=== PATIENT | male | born 1935 | race Caucasian/White ===

== ENCOUNTER 2022-02-09 08:52 | Inpatient (IN) | payer OTHER ==
--- NOTE | 2022-02-09 15:54 | R.PREADM ---
PRE-ADMISSION SCREENING FORM SCREENING DATE AND TIME 02/09/2022 10:21 (CDT) ANTICIPATED REHAB ADMISSION DATE 02/11/2022 REFERRING FACILITY [facility] REFERRAL DATE AND TIME 02/08/2022 10:26 (CDT) REFERRAL ROOM# 216 ACUTE ADMIT DATE 02/04/2022 Previous Rehabilitation(s): No. 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 THOMAS REFERRING PHYSICIAN REHAB FACILITY [facility] CLINICAL LIAISON Veena Nelson PHYSICIAN REVIEWER Dr. Dalton Helms M.D. MR# [id number] NAME ALICIA CABRERA AD[address]ESS [address] ( [place]IP [phone] DATE OF 1935 AGE 86 SSN# [id number] GENDER male MARITAL STATUS Unknown PREF. LANGUAGE (IF NON-ROMANIAN) Slovak ADMIT FROM 02 - [facility] PRE-HOSPITAL LIVING SETTING 01 - Home (private home/apt. board/care, assisted living, long term, transitional living) HOME TYPE AND DETAILS Type of home: single family house # of steps to enter the residence: 0 # of levels in the residence: 1 # of steps within the residence: 0 PRE-HOSPITAL LIVING WITH Alone FAMILY SUPPORT No PRIMARY FAMILY CONTACT NAME ROSS LUGO PRIMARY FAMILY CONTACT PHONE PRIMARY FAMILY CONTACT RELATIONSHIP FAMILY PHONE PRIMARY FAMILY CONTACT ON ADM.? no IS PRIMARY FAMILY CONTACT AUTH. REP.? no 1ST EMERGENCY CONTACT ROSS LUGO 1ST CONTACT PHONE 1ST CONTACT RELATIONSHIP FAMILY PHONE 1ST CONTACT ON ADM. no IS 1ST CONTACT AUTH. REP.? no PHONE 2ND CONTACT ON ADM.? no PATIENT EMPLOYMENT STATUS Retired (for age) PATIENT EMPLOYER No Employer PAYOR INFORMATION: 1ST PAYOR NAME MEDICARE 1ST PAYOR PHONE 1ST PAYOR INJURY/ILLNESS DUE TO ACCIDENT? No ANOTHER LIBERTARIAN RESPONSIBLE? No PRIMARY REHAB/ACUTE DIAGNOSIS: CHF ONSET DATE 02/04/2022 REHAB IMPAIRMENT CATEGORY (GARRET): 14 Cardiac does NOT meet 60% rule PRIMARY DIAGNOSIS-RELATED SURGERIES: N/A INTERVENTIONS: - CHF monitoring of patient symptoms and medication management by physician Regular assessment of patient vitals. Daily weights will be obtained - Diabetes Monitor blood glucose levels and administer medication as indicated by Physician Diet will be customized to manage diabetic needs. - Depression Patient will continue with administered medications per MD Provide regular exercise, which is a proponent to fight depression - A-Fib Vitals will be monitored regularly and medications administered as indicated by Physician - Weakness Daily therapy services to enhance patient's functional strength and abilities. RISK FOR COMPLICATIONS: - CARDIC monitoring heart rate/signs and symptoms for cardiac distress - Weakness Regular therapeutic activity and exercise Strengthening exercises to be performed - Diabetic Complications Regular monitoring and management of blood glucose levels. pt will receive a specialized diet to help manage blood glucose levels - Skin Breakdown Nursing will assess skin daily using assessment tool and will place on Skin Breakdown Precautions as Indicated per protocol - UTI Monitor for frequency, burning, discomfort, or incontinence Physician medical management as warranted - Falls Educated pt on fall prevention strategies to reduce/eliminate fall risk Patient will be evaluated for Fall Precautions and will be placed on Fall Precautions as indicated pe r protocol. - DVT PTT and INR will be monitored to effectively mitigate risk for development of DVT or PE while here. Medications will be administered as per MD Mobility training and regular exercise - CVA pt has A-Fib and requires medical monitoring and medication management to reduce risk for CVA SUMMARY OF ACUTE HOSPITALIZATION: Pt. is a 86 yo Right-handed male. On 02/04/2022 he was admitted to [facility] with diagnosis CHF. His impairment category is Cardiac 09 - Cardiac Disorders (09). Pre-morbidly, Pt. was independent/mod-I in Locomotion, Safety Awareness, Social Cognition, and Balanc e; and he had good Transfers Control, Sphincter Control, Self-Care, Communication, and Endurance. Currently, he has deficits of Locomotion, Safety Awareness, Social Cognition, Transfers Control, Roby nce, Sphincter Control, Self-Care, Endurance, and Communication. Pt. is now referred to [facility] for acute in-patient rehabilitation in order to maximize patient's functional independence in activities of daily living, strength, ROM, and mobi lity. Patient has realistic goal of being discharged at assistance level 7-Ind to reside at Home with Pt s elf. 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 Treatment - . REVIEW OF SYSTEMS: - Gen Alert and awake Lying in bed No apparent distress Oriented to: person, time, and place - Vital Signs Temperature: 97.5 F SBP/DBP: 112/53 Pulse: 89 Resp: 18 Vital signs stable, afebrile - CVS RRR VITAL SIGNS Temperature: 97.5 F SBP/DBP: 112/53 Pulse: 89 Resp: 18 Vital signs stable, afebrile MEDICATIONS/TREATMENT: Other- See attached MAR (Medication Administration Record). CURRENT SPHINCTER CONTROL: Pre-hospital bladder status: unspecified # of bladder accidents in the last 7 days prior to screenin Pre-hospital bowel status: unspecified # of bowel accidents in the last 7 days prior to screenin Last Bowel Movement Date: 02/09/2022 CURRENT LOCOMOTION STATUS: distance walked 20 feet with rolling walker DETAILED CURRENT FUNCTIONAL STATUS: - Bladder accident frequency: 7-Ind - No accidents in the past 7 days - Bowel accident frequency: 7-Ind - No accidents in the past 7 days - Walking score based on distance walked: 0(N/A) score based on distance walked: 1(<=50ft) - Wheelchair score based on distance traveled: 0(N/A) QI SCORES: - Self-Care A. Eating 03-Partial/moderate assistance B. Oral hygiene 03-Partial/moderate assistance C. Toileting hygiene 03-Partial/moderate assistance E. Shower/bathe self 03-Partial/moderate assistance F. Upper body dressing 03-Partial/moderate assistance G. Lower body dressing 03-Partial/moderate assistance H. Putting on/taking off footwear 88-Not attempted due to medical condition or safety concerns - Mobility A. Roll left and right 04-Supervision or touching assistance B. Sit to lying 03-Partial/moderate assistance C. Lying to sitting on side of bed 03-Partial/moderate assistance D. Sit to stand 03-Partial/moderate assistance E. Chair/[id number] transfer 03-Partial/moderate assistance F. Toilet transfer 03-Partial/moderate assistance G. Car transfer 88-Not attempted due to medical condition or safety concerns I. Walk 10 feet 03-Partial/moderate assistance J. Walk 50 feet with two turns 88-Not attempted due to medical condition or safety concerns K. Walk 150 feet 88-Not attempted due to medical condition or safety concerns L. Walking 10 feet on uneven surfaces 88-Not attempted due to medical condition or safety concerns M. 1 step (curb) 88-Not attempted due to medical condition or safety concerns N. 4 steps 88-Not attempted due to medical condition or safety concerns O. 12 steps 88-Not attempted due to medical condition or safety concerns P. Picking up object 88-Not attempted due to medical condition or safety concerns R. Wheel 50 feet with two turns S. Wheel 150 feet - Bladder and Bowel Bladder continence Bowel continence - Endurance Fair - Balance Fair - Safety Awareness Fair CURRENT FUNC. DEFICITS: Self-Care, Mobility, Endurance, Balance, and Safety Awareness CURRENT / PREVIOUS ASSISTIVE DEVICES: Rolling Walker HISTORY OF FALLS. HAS THE PATIENT HAD TWO OR MORE FALLS IN THE PAST YEAR OR ANY FALL WITH INJURY IN T HE PAST YEAR?: Yes PRIOR SURGERY. DID THE PATIENT HAVE MAJOR SURGERY DURING THE 100 DAYS PRIOR TO ADMISSION?: No THERAPY NOTES FROM ACUTE CARE: Attached. SPECIAL NEEDS: - Safety Concerns Skin breakdown precautions needed due to skin breakdown risk - GENERAL WEAKNESS PRECAUTIONS: - Fall Precaution SAFTY AND FALL PATIENT NEEDS ACTIVE AND ONGOING THERAPEUTIC INTERVENTION OF MULTIPLE THERAPY DISCIPLINES, INCLUDING: - Dietary and Nutrition Adequate Nutrition. Nutritional Education. Nutritional Supplements. Evaluate and Treat. - Occupational Therapy Cognitive Retraining. Patient needs Occupational Therapy for a daily minimum of 1.5 hours at least 5 out of 7 days, to improve Activities of Daily Living, including: Eating, Grooming, Bathing, Dressing, Toileting, Toilet Transfers, Community Reintegration, Higher functional activities, Adaptive Equipme nt, Splinting, Household Tasks, and Other activities as determined. Visual Perceptual Training. Evalu ate and Treat. Patient/Family Education. Safety Awareness. Transfer Training. ADL Training. Household Tasks. UE Strengthening. Adaptive Equipment. - Speech Therapy Cognitive Training. Expressive Language Skills. Memory Strategies. Patient needs Speech Therapy for a daily minimum of 1.5 hours at least 5 out of 7 days, to improve: Swallowing, Cognition, Language Ski lls, and Compensatory Strategies. Receptive Language Skills. Speech Intelligibility Training. Evaluat e and Treat. - Physical Therapy Patient needs Physical Therapy for a daily minimum of 1.5 hours at least 5 out of 7 days, to improve: Mobility, Strengthening, Transfers, Stretching, ROM, Endurance, Ability to manage stairs, Gait, and Balance. Mobility Training. Gait Training. Safety Awareness. Balance Training. Transfer Training. luate and Treat. Patient/Family Education. LE Strengthening. PATIENT NEEDS CLOSE MEDICAL SUPERVISION BY A REHABILITATION PHYSICIAN FOR: Coordination of Treatment Team Wound Care Medical and Co-Morbidity Management DVT Management Pain Management PATIENT REQUIRES 24X7 REHAB NURSING FOR MEDICAL AND FUNCTIONAL MGT. OF THE FOLLOWING DEFICITS: Disease Management Medication Management Patient requires 24x7 Rehabilitation Nursing for: Pain Issues, Identifying and preventing risk factor s, Monitoring and reporting current medical conditions, Assisting with ambulation and transfer, Isidro ting with all ADL-s, Teaching patients about disease process and medications, Family teaching, Provid ing safe environment, Bowel and Bladder Issues, Skin Integrity, and Medication Management Patient/Family Education Providing Safe Environment Skin Integrity Bowel and Bladder Management Pain Management PATIENT REQUIRES INTENSIVE, COORDINATED INTERDISCIPLINARY APPROACH TO REHAB: Arranging Home Equipment/Services Discharge Planning Family Intervention/Training Patient needs Dietary and Nutrition Services for: Adequate Nutrition, Nutritional Supplements, and Nu tritional Education Patient needs On Air Host and/or Case Management for: Discharge Planning, Arranging Home Equipmen t or Services, and Family Interventions On Air Host/Case Management PATIENT REHAB POTENTIAL: Caroline CABRERA is able and expected to receive 3 hours of individualized therapy daily on at least 5 of e very 7 days Caroline CABRERA's prognosis for significant practical improvement within a reasonable period of time appea rs Good Expected level of measurable improvement will be of a practical value to Caroline CABRERA's functional capa city or adaptations to impairments Has a viable Discharge Plan Medically appropriate; condition is sufficiently stable to participate in intensive rehab program DISCHARGE PLAN: - Estimated Length of Stay (days) 10. - Consensus on plan Discharge plan has been discussed with primary caregiver. Patient/Family is in agreement with the harish n. Primary caregiver is in agreement with the plan. - Patient/Family Goals Return home independently. - Planned Living Setting Upon Discharge Home, to live alone. Transitional Living. Primary caregiver: Pt self. RECOMMENDED CARE LEVEL: IRF RECOMMENDATION DETAILS: Recommended Admission to Comprehensive Rehabilitation Program to Increase Functional [place] SCREENER'S COMPLETENESS CONFIRMATION: - Screening Confirmation The patient data collection on this preadmission screening form is finished PHYSICIANS REVIEW AND ADMISSION DETERMINATION Admit - Based on my review of the Pre-Admission Screening results, in my medical judgment and experie nce, I concur with the findings and recommend admission to [facility], as this patient requires an IRF level of care. SIGNATURE PANEL: Production Assembly Operator - [electronically] signed by Veena Nelson on 02/09/2022 at 15:11 (CDT) Production Assembly Operator - [electronically] signed by Yovany Alvarez PT on 02/09/2022 at 15:28 (CDT) Physician Reviewer - [electronically] signed by Dr. Dalton Helms M.D. on 02/09/2022 at 15:53 (CDT )
--- OUTSIDE RECORDS SUMMARY | 2022-02-09 19:57 | XMS REPORT | Continuity of Care Document ---
:1935 Author Organization [facility] t Address [address] [place] [address] Support Name Relationship Address Phone ROSS LUGO [phone] [place] [address] DO David FINCH Primary Care Physician [address] [phone] [place] [address] MD WILLIAM ELYSE Admitting Provider [address] [place] [address] MD YOGI R Emergency Provider [address] [place] [address] TRIPLET Unavailable [address] [place] [address] TAQUERIA BRASWELL Attending Provider [address] [place] [address] TRIPLET Unavailable [address] [place] [address] MD CARLY L Emergency Provider [address] [place] [address] MD MELCHOR A Emergency Provider [address] [place] [address] MD JENNIFER A Emergency Provider [facility] [place] [address] MD KOFFI Emergency Provider [address] [phone] [place] [address] JUAN F ABDI MD E Admitting Provider [address] [phone] [place] [address] LUGO Family [place] [address] MD REFUGIO Emergency Provider Unavailable Unavailable DO ELENA FINCH Primary Care Physician [address] [place] [address] MD DIANE Emergency Provider [address] [place] [address] Care Team Providers Name Role Phone BURTON Primary Care Physician Unavailable JOANN BERNARDO Attending Clinician Unavailable NERNAZANIN Attending Clinician Unavailable BURTON Attending Clinician Unavailable JOANN BERNARDO Admitting Clinician Unavailable NERET Admitting Clinician Unavailable BURTON Admitting Clinician Unavailable Payers Payer Name Policy Type Policy Number Effective Date Expiration Date S orestes MEDICARE A B [id number] 2000 00:00:00 MEDICAID [employer] [id number] 2021 00:00:00 [place] [id number] 2000 [employer] 00:00:00 [place] ACS - [id number] TMHP - TRADITIONAL Problems This patient has no known problems. Allergies, Adverse Reactions, Alerts Allergy Allergy Status Severity Reaction(s) Onset Inactive Treating Comm ents Source Name Type Date Date Clinician IBUPROFE Allergy Active 2020-[address] [facility] Medications This patient has no known medications. Vital Signs Vital Name Observation Time Observation Value Comments Source HEIGHT 2021-10-07 19:28:00 172.7 cm WEIGHT 2021-10-07 19:28:00 100.6 kg HEIGHT 2021-10-07 19:28:00 172.7 cm WEIGHT 2021-10-07 19:28:00 100.6 kg Procedures This patient has no known procedures. Encounters Start End Encounter Admission Attending Care Care Encounter Source Date/Time Date/Time Type Type Clinicians Facility Department ID 2021-10-07 2021-10-17 Inpatient ER THOR BERNARDO Podiatry [id number] [facility] 18:29:00 16:19:00 CARLOS 2020-05-31 2020-05-31 [facility] [id number] [place] 12:38:00 12:38:00 0714 [facility] 2020-05-25 2020-05-25 [id number] [place] 03:27:00 03:27:00 0708 [facility] Group 2017-04-20 2017-04-20 Outpatient [facility] [id number] [place] 11:02:00 11:02:00 0427 [facility] Results Test Description Test Time Test Comments Results Result Comments Source POCT-GLUCOSE METER 2021-10-17 12:05:32 Test Item Value Reference Range Interpretation Comme nts POC-GLUCOSE METER (BEAKER) 132 mg/dL 70-110 H : TESTED AT [facility] [address]test code = [address], [place] [facility] [address]: [employer] Business Analyst/Techni get ID = [id number] for Gupta Yuliya POCT-GLUCOSE [id number] 07:48:35 Test Item Value Reference Range Interpretation Comments POC-GLUCOSE METER 102 mg/dL 70-110 : TESTED A T [facility] [address] (BEAKER) (test code [address], = 1538) [facility] [address]: [employer] Business Analyst/Techni get ID = [id number] for Lars Yuliya krueger CBC W/PLT COUNT & AUTO [id number] 06:10:33 Test Item Value Reference Range Interpretation Comments WHITE BLOOD CELL COUNT (BEAKER) 7.4 K/ L 4.0-10.0 (test code = 775) RED BLOOD CELL COUNT (BEAKER) 3.41 M/ L 4.20-5.80 L (test code = 761) HEMOGLOBIN (BEAKER) (test code = 10.0 GM/DL 13.0-16.8 L 410) HEMATOCRIT (BEAKER) (test code = 32.0 % 36.0-50.0 L 411) MEAN CORPUSCULAR VOLUME (BEAKER) 93.8 fL 82.0-99.0 (test code = 753) MEAN CORPUSCULAR HEMOGLOBIN 29.3 pg 27.0-33.0 (BEAKER) (test code = 751) MEAN CORPUSCULAR HEMOGLOBIN CONC 31.3 GM/DL 32.0-36.0 L (BEAKER) (test code = 752) RED CELL DISTRIBUTION WIDTH 13.5 % 12.0-15.0 (BEAKER) (test code = 412) PLATELET COUNT (BEAKER) (test 298 K/CU MM 150-430 code = 756) MEAN PLATELET VOLUME (BEAKER) 10.4 fL 6.0-11.5 (test code = 754) NUCLEATED RED BLOOD CELLS 0 /100 WBC 0-0 (BEAKER) (test code = 413) (MANUAL DIFFERENTIAL)2021-10-17 06:10:33 Test Item Value Reference Range Interpretation Comments NEUTROPHILS - REL (DIFF) (BEAKER) 59 % (test code = 1359) LYMPHOCYTES - REL (DIFF) (BEAKER) 22 % (test code = 1360) MONOCYTES - REL (DIFF) (BEAKER) 4 % (test code = 1361) EOSINOPHILS - REL (DIFF) (BEAKER) 10 % (test code = 1362) BASOPHILS - REL (DIFF) (BEAKER) 2 % (test code = 1363) BANDS - REL (DIFF) (BEAKER) (test 2 % 0-10 code = 1348) ATYPICAL LYMPHOCYTE - REL (DIFF) 1 % 0-0 H (BEAKER) (test code = 260) NEUTROPHILS - ABS (DIFF) (BEAKER) 4.37 K/ L 1.80-8.00 (test code = 1365) LYMPHOCYTES - ABS (DIFF) (BEAKER) 1.63 K/ L 1.48-4.50 (test code = 1366) MONOCYTES - ABS (DIFF) (BEAKER) 0.30 K/ L 0.00-1.30 (test code = 1367) EOSINOPHILS - ABS (DIFF) (BEAKER) 0.74 K/ L 0.00-0.50 H (test code = 1368) BASOPHILS - ABS (DIFF) (BEAKER) 0.15 K/ L 0.00-0.20 (test code = 1369) BANDS-ABS (DIFF) (BEAKER) (test 0.1 K/ L 0.0-0.8 code = 1349) ATYPICAL LYMPHOCYTES - ABS (DIFF) 0.07 K/ L 0.00-0.00 H (BEAKER) (test code = 263) TOTAL COUNTED (BEAKER) (test code = 100 1351) BANDS + SEGMENTED NEUTROPHILS 4.51 (BEAKER) (test code = 1352) WBC MORPHOLOGY (BEAKER) (test code Normal = 487) RBC MORPHOLOGY (BEAKER) (test code Normal = 762) LARGE PLT(BEAKER) (test code = Present 2156) BASIC METABOLIC [id number] 06:01:27 Test Item Value Reference Range Interpretation Comments SODIUM (BEAKER) 139 meq/L 135-148 (test code = 381) POTASSIUM (BEAKER) 4.4 meq/L 3.6-5.5 Specimen slightly (test code = 379) hemolyzed CHLORIDE (BEAKER) 108 meq/L 98-106 H (test code = 382) CO2 (BEAKER) (test 20 meq/L 20-29 code = 355) BLOOD UREA NITROGEN 29 mg/dL 10-26 H (BEAKER) (test code = 354) CREATININE (BEAKER) 1.71 mg/dL 0.50-1.20 H Specimen slightly (test code = 358) hemolyzed GLUCOSE RANDOM 107 mg/dL 70-110 (BEAKER) (test code = 652) CALCIUM (BEAKER) 8.2 mg/dL 8.5-10.5 L (test code = 697) EGFR (BEAKER) (test 38 mL/min/1.73 ESTIMA THOMAS GFR IS code = 1092) sq m NOT ACCURATE CREATININE CLEARANCE IN PREDICTING GLOMERULAR FILTRATION RATE . ESTIMATED GFR I S NOT APPLICABLE FOR DIALYSIS PATIEN TS. [employer] Business Analyst ID - [id number] ID - [id number] ID - [id number] ID - [id number] ID - JGOR25Ncbjsmnc ID - [id number] ID - LIQY02Zorwtltm ID - [id number] ID - [id number] ID - [id number] ID - BOZH23Oupznusu ID - TUUL27NIS, CHEST, 1 VIEW, NON [id number] 21:30:00Reason for exam:->for picc line confirmationShould this be performed at the bedside?->Yes [facility] 1935 Sex: MFINAL REPORT Exam: RAD, CHEST, 1 VIEW, NON DEPTDate: 10/16/2021 9:29 PM Indication: Line placement Comparison: Chest radiograph of 10/11/2021 FINDINGS: Lines/Tubes:Left chestAICD unchanged. Right PICC line terminates in the SVC. Lungs:Stable lung volumes and central pulmonary vascular congestion. No new focal consolidation. Pleura:No pleural effusion. No pneumothorax. Heart /Mediastinum:Cardiomediastinal silhouette is stably enlarged. Bones/Soft Tissues: No acute osseous injury. Abdomen: No free air below the diaphragm. IMPRESSION:Right PICC line terminates in the SVC. Stable cardiomegaly and central pulmonary vascular congestion. Signed: Reza Wilson MDReport Verified Da te/Time: 10/16/2021 21:30:07 Reading Location: [address] Transitional Reading Room ANAEROBIC [id number] 14:06:04 Test Item Value Reference Range Interpretation Comments CULTURE (BEAKER) A 1+ Peptostr eptococcus species (test code = 1095) POCT-GLUCOSE [id number] 08:49:44 Test Item Value Reference Range Interpretation Comments POC-GLUCOSE METER 82 mg/dL 70-110 : TESTED A T [facility] [address] (BEAKER) (test code = [address]) [place] [address]: [employer] Business Analyst/Techni get ID = [id number] for Lars h, Yuliya POCT-GLUCOSE [id number] 21:41:46 Test Item Value Reference Range Interpretation Comments POC-GLUCOSE METER 87 mg/dL 70-110 : TESTED A T [facility] [address] (BEAKER) (test code = [address], [address]) [place] [address]: [employer] Business Analyst/Techni get ID = [id number] for Edwa Corey gibsonothy POCT-GLUCOSE [id number] 15:43:58 Test Item Value Reference Range Interpretation Comments POC-GLUCOSE METER 202 mg/dL 70-110 H : TESTED A T [facility] [address] (BEAKER) (test code [address], = 1538) [place] [address]: [employer] Business Analyst/Techni get ID = [id number] for Veronica Moise POCT-GLUCOSE [id number] 11:37:55 Test Item Value Reference Range Interpretation Comments POC-GLUCOSE METER 132 mg/dL 70-110 H : TESTED A T [facility] [address] (BEAKER) (test code [address], = 1538) [facility] [address]: [employer] Business Analyst/Techni get ID = [id number] for Veronica Moise POCT-GLUCOSE [id number] 11:19:10 Test Item Value Reference Range Interpretation Comments POC-GLUCOSE METER 161 mg/dL 70-110 H : TESTED A T [facility] [address] (BEAKER) (test code [address], = [address]) [place] [address]: [employer] Business Analyst/Techni get ID = [id number] for Keron Monte [id number] 07:28:33 Test Item Value Reference Range Interpretation Comments MAGNESIUM (BEAKER) (test code = 1.9 mg/dL 1.5-3.0 627) [employer] Business Analyst ID - LITOBASIC METABOLIC [id number] 05:42:47 Test Item Value Reference Range Interpretation Comments SODIUM (BEAKER) 142 meq/L 135-148 (test code = 381) POTASSIUM (BEAKER) 3.9 meq/L 3.6-5.5 (test code = 379) CHLORIDE (BEAKER) 109 meq/L 98-106 H (test code = 382) CO2 (BEAKER) (test 23 meq/L 20-29 code = 355) BLOOD UREA NITROGEN 19 mg/dL 10-26 (BEAKER) (test code = 354) CREATININE (BEAKER) 1.52 mg/dL 0.50-1.20 H (test code = 358) GLUCOSE RANDOM 91 mg/dL 70-110 (BEAKER) (test code = 652) CALCIUM (BEAKER) 8.5 mg/dL 8.5-10.5 (test code = 697) EGFR (BEAKER) (test 44 mL/min/1.73 ESTIMA THOMAS GFR IS code = 1092) sq m NOT ACCURATE CREATININE CLEARANCE IN PREDICTING GLOMERULAR FILTRATION RATE . ESTIMATED GFR I S NOT APPLICABLE FOR DIALYSIS PATIEN TS. [employer] Business Analyst ID - LITOOperator ID - LITOOperator ID - LITOOperator ID - LITOOperator ID - LITOOperator ID - LITOOperator ID - LITOOperator ID - LITOOperator ID - LITOOperator ID - LITOOperator ID - LITOOperator ID - LITOPOCT-GLUCOSE METER 2021-10-13 19:52:36 Test Item Value Reference Range Interpretation Comments POC-GLUCOSE METER 187 mg/dL 70-110 H : TESTED A T [facility] [address] (BEAKER) (test code [address], = 1538) [facility] [address]: [employer] Business Analyst/Techni get ID = [id number] for Danielle Brewer ANAEROBIC [id number] 08:16:34 Test Item Value Reference Range Interpretation Comments CULTURE (BEAKER) (test No anaerobes isolated code = 1095) CBC W/PLT COUNT & AUTO [id number] 05:44:15 Test Item Value Reference Range Interpretation Comments WHITE BLOOD CELL COUNT (BEAKER) 8.7 K/ L 4.0-10.0 (test code = 775) RED BLOOD CELL COUNT (BEAKER) 3.89 M/ L 4.20-5.80 L (test code = 761) HEMOGLOBIN (BEAKER) (test code = 11.5 GM/DL 13.0-16.8 L 410) HEMATOCRIT (BEAKER) (test code = 35.6 % 36.0-50.0 L 411) MEAN CORPUSCULAR VOLUME (BEAKER) 91.5 fL 82.0-99.0 (test code = 753) MEAN CORPUSCULAR HEMOGLOBIN 29.6 pg 27.0-33.0 (BEAKER) (test code = 751) MEAN CORPUSCULAR HEMOGLOBIN CONC 32.3 GM/DL 32.0-36.0 (BEAKER) (test code = 752) RED CELL DISTRIBUTION WIDTH 13.2 % 12.0-15.0 (BEAKER) (test code = 412) PLATELET COUNT (BEAKER) (test 330 K/CU MM 150-430 code = 756) MEAN PLATELET VOLUME (BEAKER) 9.9 fL 6.0-11.5 (test code = 754) NUCLEATED RED BLOOD CELLS 0 /100 WBC 0-0 (BEAKER) (test code = 413) NEUTROPHILS RELATIVE PERCENT 53 % (BEAKER) (test code = 429) LYMPHOCYTES RELATIVE PERCENT 21 % (BEAKER) (test code = 430) MONOCYTES RELATIVE PERCENT 10 % (BEAKER) (test code = 431) EOSINOPHILS RELATIVE PERCENT 12 % (BEAKER) (test code = 432) BASOPHILS RELATIVE PERCENT 1 % (BEAKER) (test code = 437) NEUTROPHILS ABSOLUTE COUNT 4.62 K/ L 1.80-8.00 (BEAKER) (test code = 670) LYMPHOCYTES ABSOLUTE COUNT 1.81 K/ L 1.48-4.50 (BEAKER) (test code = 414) MONOCYTES ABSOLUTE COUNT (BEAKER) 0.84 K/ L 0.00-1.30 (test code = 415) EOSINOPHILS ABSOLUTE COUNT 1.02 K/ L 0.00-0.50 H (BEAKER) (test code = 416) BASOPHILS ABSOLUTE COUNT (BEAKER) 0.07 K/ L 0.00-0.20 (test code = 417) IMMATURE GRANULOCYTES-RELATIVE 4 % 0-0 H PERCENT (BEAKER) (test code = 2801) (MANUAL DIFFERENTIAL)2021-10-13 05:44:15 Test Item Value Reference Range Interpretation Comments NEUTROPHILS - REL (DIFF) (BEAKER) 59 % (test code = 1359) LYMPHOCYTES - REL (DIFF) (BEAKER) 13 % (test code = 1360) MONOCYTES - REL (DIFF) (BEAKER) 12 % (test code = 1361) EOSINOPHILS - REL (DIFF) (BEAKER) 9 % (test code = 1362) BASOPHILS - REL (DIFF) (BEAKER) 1 % (test code = 1363) BANDS - REL (DIFF) (BEAKER) (test 1 % 0-10 code = 1348) ATYPICAL LYMPHOCYTE - REL (DIFF) 5 % 0-0 H (BEAKER) (test code = 260) NEUTROPHILS - ABS (DIFF) (BEAKER) 5.13 K/ L 1.80-8.00 (test code = 1365) LYMPHOCYTES - ABS (DIFF) (BEAKER) 1.13 K/ L 1.48-4.50 L (test code = 1366) MONOCYTES - ABS (DIFF) (BEAKER) 1.04 K/ L 0.00-1.30 (test code = 1367) EOSINOPHILS - ABS (DIFF) (BEAKER) 0.78 K/ L 0.00-0.50 H (test code = 1368) BASOPHILS - ABS (DIFF) (BEAKER) 0.09 K/ L 0.00-0.20 (test code = 1369) BANDS-ABS (DIFF) (BEAKER) (test 0.1 K/ L 0.0-0.8 code = 1349) ATYPICAL LYMPHOCYTES - ABS (DIFF) 0.44 K/ L 0.00-0.00 H (BEAKER) (test code = 263) TOTAL COUNTED (BEAKER) (test code = 100 1351) BANDS + SEGMENTED NEUTROPHILS 5.22 (BEAKER) (test code = 1352) WBC MORPHOLOGY (BEAKER) (test code Normal = 487) RBC MORPHOLOGY (BEAKER) (test code Normal = 762) LARGE PLT(BEAKER) (test code = Present 2156) BASIC METABOLIC [id number] 05:14:58 Test Item Value Reference Range Interpretation Comments SODIUM (BEAKER) 138 meq/L 135-148 (test code = 381) POTASSIUM (BEAKER) 3.8 meq/L 3.6-5.5 (test code = 379) CHLORIDE (BEAKER) 107 meq/L 98-106 H (test code = 382) CO2 (BEAKER) (test 22 meq/L 20-29 code = 355) BLOOD UREA NITROGEN 18 mg/dL 10-26 (BEAKER) (test code = 354) CREATININE (BEAKER) 1.49 mg/dL 0.50-1.20 H (test code = 358) GLUCOSE RANDOM 91 mg/dL 70-110 (BEAKER) (test code = 652) CALCIUM (BEAKER) 8.3 mg/dL 8.5-10.5 L (test code = 697) EGFR (BEAKER) (test 45 mL/min/1.73 ESTIMA THOMAS GFR IS code = 1092) sq m NOT ACCURATE CREATININE CLEARANCE IN PREDICTING GLOMERULAR FILTRATION RATE . ESTIMATED GFR I S NOT APPLICABLE FOR DIALYSIS PATIEN TS. [employer] Business Analyst ID - LITOOperator ID - LITOOperator ID - LITOOperator ID - LITOOperator ID - LITOOperator ID - LITOOperator ID - LITOOperator ID - LITOOperator ID - LITOOperator ID - LITOOperator ID - LITOOperator ID - LITOBLOOD CULTURE 2021-10-13 01:00:26 Test Item Value Reference Range Interpretation Comments CULTURE (BEAKER) (test No growth in 5 days code = 1095) BLOOD [id number] 01:00:25 Test Item Value Reference Range Interpretation Comments CULTURE (BEAKER) (test No growth in 5 days code = 1095) WOUND CULTURE + GRAM [id number] 10:30:00 Test Item Value Reference Interpretation Comments Range CULTURE (BEAKER) STAPHYLOCOCCUS A 1+ Staphy lococcus (test code = 1095) AUREUS aureus Ciprofloxacin (test S code = 7) Clindamycin (test R code = 10) Daptomycin (test code S = 59) Erythromycin (test R code = 4) Gentamicin (test code S = 18) Levofloxacin (test S code = 22) Linezolid (test code S = 40) Moxifloxacin (test S code = 36) Nitrofurantoin (test S code = 23) Oxacillin (test code S = 14) Rifampin (test code = S 43) Tetracycline (test S code = 2) Tigecycline (test S code = 133) Trimethoprim + S Sulfamethoxazole (test code = 47) Vancomycin (test code S = 13) GRAM STAIN RESULT 3+ WBCs (BEAKER) (test code = 1123) GRAM STAIN RESULT 1+ gram positive (BEAKER) (test code = cocci in pairs and 431969) clusters GRAM STAIN RESULT <1+ epithelial (BEAKER) (test code = cells 228120) SURGICALLY OBTAINED CULTURE + GRAM [id number] 09:06:21 Test Item Value Reference Interpretation Comments Range CULTURE (BEAKER) STAPHYLOCOCCUS A 1+ Staphy lococcus (test code = 1095) AUREUS aureus Ciprofloxacin (test S code = 7) Clindamycin (test R code = 10) Daptomycin (test code S = 59) Erythromycin (test R code = 4) Gentamicin (test code S = 18) Levofloxacin (test S code = 22) Linezolid (test code S = 40) Moxifloxacin (test S code = 36) Nitrofurantoin (test S code = 23) Oxacillin (test code S = 14) Rifampin (test code = S 43) Tetracycline (test S code = 2) Tigecycline (test S code = 133) Trimethoprim + S Sulfamethoxazole (test code = 47) Vancomycin (test code S = 13) GRAM STAIN RESULT 1+ WBCs (BEAKER) (test code = 1123) GRAM STAIN RESULT <1+ gram positive (BEAKER) (test code = cocci in pairs and [id number]) clusters GRAM STAIN RESULT No epithelial (BEAKER) (test code = cells [id number]) SURGICALLY OBTAINED CULTURE + GRAM [id number] 08:53:44 Test Item Value Reference Range Interpretation Comments CULTURE (BEAKER) (test No growth code = 1095) GRAM STAIN RESULT <1+ WBCs (BEAKER) (test code = 1123) GRAM STAIN RESULT <1+ epithelial cells (BEAKER) (test code = 30350) GRAM STAIN RESULT No organisms seen (BEAKER) (test code = 73116) RAD, CHEST, 1 VIEW, NON [id number] 16:03:00Reason for exam:->coughShould this be performed at the bedside?->Yes [facility] 1935 Sex: MFINAL REPORT Chest, 1 view, 10/11/2021 3:28 PM. History: Cough. Comparison: 04/25/2013. Discussion: The cardiac silhouette and pulmonary vasculature are within normal limits for a portable exam, but there is prominence of the descending thoracic aorta. The lungs are clear without evidence of consolidation or effusion. Left subclavian AICD is unchanged in position. The soft tissues and osseous structures are intact. IMPRESSION: No acute pulmonary abnormality, but prominence of the descending thoracic aorta may be secondary to tortuosity versus aneurysm. Consider further evaluation with CT chest. Signed: Jakub Patel Verified Date/Time: 10/11/2021 16:03:46 Reading Location: [facility] Radiology Reading Room TISSUE [id number] 10:30:47 Surgical Pathology Report Case: [id number] Authorizing Provider: Radha Mary MD Collected: 10/10/2021 07:23 AM Ordering Location: [address] Med/Surg Received: 10/10/2021 08:51 AM Pathologist: Alison Gresham MD Specimen: Bone, RIGHT FOOT BONE, RIGHT FOOT,BIOPSY: - FRAGMENTS OF BONE, FIBROCONNECTIVE TISSUE AND BLOOD WITH ABSCESS Signing Pathologist Direct Phone Line: [phone] signed by Alison Gresham MD on 10/11/2021t 10:30 AMMG/[id number] foot infection with abscess Bone right foot Specimen A received in fixative labeled with the patient's name and medical record number and designated as "bone", consists of soft pink-blankenship tissue that is 1.0 x 0.5 x 0.3 cm in aggregate. The specimen is submitted into decalcification and into A1. MG/ew Performed [facility], Department of Pathology, [address] [place], [place] [address], Nnxlct [facility], Depa rtment of Pathology, [address] [place] [address], [facility], [address] [place], [place] [address], HXKJA METABOLIC [id number] 07:01:38 Test Item Value Reference Range Interpretation Comments SODIUM (BEAKER) 140 meq/L 135-148 (test code = 381) POTASSIUM (BEAKER) 4.1 meq/L 3.6-5.5 (test code = 379) CHLORIDE (BEAKER) 106 meq/L 98-106 (test code = 382) CO2 (BEAKER) (test 22 meq/L 20-29 code = 355) BLOOD UREA NITROGEN 24 mg/dL 10-26 (BEAKER) (test code = 354) CREATININE (BEAKER) 1.54 mg/dL 0.50-1.20 H (test code = 358) GLUCOSE RANDOM 134 mg/dL 70-110 H (BEAKER) (test code = 652) CALCIUM (BEAKER) 8.4 mg/dL 8.5-10.5 L (test code = 697) EGFR (BEAKER) (test 43 mL/min/1.73 ESTIMA THOMAS GFR IS code = 1092) sq m NOT ACCURATE CREATININE CLEARANCE IN PREDICTING GLOMERULAR FILTRATION RATE . ESTIMATED GFR I S NOT APPLICABLE FOR DIALYSIS PATIEN TS. [employer] Business Analyst ID - LITOOperator ID - LITOOperator ID - LITOOperator ID - LITOOperator ID - LITOOperator ID - LITOOperator ID - LITOOperator ID - LITOOperator ID - LITOOperator ID - LITOOperator ID - LITOOperator ID - LITOCBC W/PLT COUNT & AUTO [id number] 05:55:46 Test Item Value Reference Range Interpretation Comments WHITE BLOOD CELL COUNT (BEAKER) 7.0 K/ L 4.0-10.0 (test code = 775) RED BLOOD CELL COUNT (BEAKER) 3.68 M/ L 4.20-5.80 L (test code = 761) HEMOGLOBIN (BEAKER) (test code = 11.1 GM/DL 13.0-16.8 L 410) HEMATOCRIT (BEAKER) (test code = 33.1 % 36.0-50.0 L 411) MEAN CORPUSCULAR VOLUME (BEAKER) 89.9 fL 82.0-99.0 (test code = 753) MEAN CORPUSCULAR HEMOGLOBIN 30.2 pg 27.0-33.0 (BEAKER) (test code = 751) MEAN CORPUSCULAR HEMOGLOBIN CONC 33.5 GM/DL 32.0-36.0 (BEAKER) (test code = 752) RED CELL DISTRIBUTION WIDTH 13.0 % 12.0-15.0 (BEAKER) (test code = 412) PLATELET COUNT (BEAKER) (test 273 K/CU MM 150-430 code = 756) MEAN PLATELET VOLUME (BEAKER) 9.6 fL 6.0-11.5 (test code = 754) NUCLEATED RED BLOOD CELLS 0 /100 WBC 0-0 (BEAKER) (test code = 413) NEUTROPHILS RELATIVE PERCENT 60 % (BEAKER) (test code = 429) LYMPHOCYTES RELATIVE PERCENT 17 % (BEAKER) (test code = 430) MONOCYTES RELATIVE PERCENT 13 % (BEAKER) (test code = 431) EOSINOPHILS RELATIVE PERCENT 8 % (BEAKER) (test code = 432) BASOPHILS RELATIVE PERCENT 1 % (BEAKER) (test code = 437) NEUTROPHILS ABSOLUTE COUNT 4.18 K/ L 1.80-8.00 (BEAKER) (test code = 670) LYMPHOCYTES ABSOLUTE COUNT 1.17 K/ L 1.48-4.50 L (BEAKER) (test code = 414) MONOCYTES ABSOLUTE COUNT (BEAKER) 0.93 K/ L 0.00-1.30 (test code = 415) EOSINOPHILS ABSOLUTE COUNT 0.59 K/ L 0.00-0.50 H (BEAKER) (test code = 416) BASOPHILS ABSOLUTE COUNT (BEAKER) 0.04 K/ L 0.00-0.20 (test code = 417) IMMATURE GRANULOCYTES-RELATIVE 1 % 0-0 H PERCENT (BEAKER) (test code = 2801) POCT-GLUCOSE [id number] 11:53:07 Test Item Value Reference Range Interpretation Comments POC-GLUCOSE METER 130 mg/dL 70-110 H : Notified RN/MD: TESTED (BEAKER) (test code AT [facility] = 1538) FABIOLAAmberSujit [facility] [id number]: [employer] Business Analyst/Techni get ID = [id number] for Carlie Woo RAD, FOOT, MIN 3 VIEWS, [id number] 10:32:00Reason for exam:->s/p incision and drainageShould this be performed at the bedside?->Yes [facility] Patricia : 1935 Sex: MFINAL REPORT Exam: RAD, FOOT, MIN 3 VIEWS, RIGHTDate: 10/10/2021 10:27 AMIndication:s/p incision and drainageComparison: 10/09/2021 DISCUSSION/IMPRESSION: AP and lateral views of the right foot were obtained. Status post first toe and intermediate soft tissue incision and debridement of infectious process. Antibody beads implanted surrounding the first digit and first andsecond toe interdigitate space. Soft tissue edema surrounding the first digit and first and second digit interspace. Remainder of osseous structures appear grossly intact. Mild to moderate degenerativechanges seen throughout the joint spaces. Signed: Judit Can MDReport Verified Date/Time: 10/10/2021 10:32:04 Reading Location: [facility] Radiology Reading Room CT, EXTREMITY, LOWER WITHOUT CONTRAST, [id number] 08:44:00Unlisted Reason for Exam - Click Yes and Enter Reason Below->NoPlease specify:->Foot [facility] : 1935 Sex: MFINAL REPORT CT of the right foot without contrast History: Osteomyelitis, foot, follow up Comparisons: None Technique: CT of the right foot was performed without contrast. Axial images were generated as were multiplanar reformatted images in the coronal and sagittal planes. This exam was performed according to our departmental dose optimization program which includes automated exposure control, adjustment of the mA and/or kV according to patient's size and/or use of iterative reconstructive technique. Findings: There is marked soft tissue edema in the plantar region of the big toe, with a medially located small subcutaneous soft tissue defect, and an adjacent 3 mm radiopaque density that may represent foreign body. There is also marked soft tissue thickening, and irregularity along with two tiny foci of soft tissue air in the first and second toe webspace, highly suspicious for infection as well. No definite drainable collection is seen on this noncontrast exam. There is marked atrophy of the foot musculature. Peripheral vascular calcification is noted. The flexor hallucis longus tendon appears thickened and wavy at the level of the metatarsal shaft, probably tornand slightly retracted. No significant tenosynovitis is identified. Nonspecific mild subcutaneous edema is also noted at the ankle, and dorsal foot. No evidence of acute fracture, or dislocation. Thereis iboc-wn-kbjduhaw DJD in the right foot. No bony erosion is identified on CT to suggest osteomyelitis. No large joint effusion is identified. Well-corticated ossific densities adjacent to the medial malleolus likely represent ossicles. There is mild Achilles tendon enthesopathy. A plantar calcaneal spur is also noted. IMPRESSION: Marked soft tissue edema in the plantar region of the big toe, with asmall subcutaneous defect, and a 3 mm radiodensity that may reflect a foreign body. No definite drainable collection identified on this noncontrast. There is also soft tissue thickening and tiny foci of air in the first and second toe webspace, highly suspicious for infection. No CT evidence of bony erosion/osteomyelitis. Osteoarthritis. Peripheral vascular disease. The flexor hallucis longus tendon m ay be torn. Signed: [facility] Verified Date/Time: 10/10/2021 08:44:54 Reading Location: [address] Ortho Consult Reading Room POCT-GLUCOSE [id number] 06:45:50 Test Item Value Reference Range Interpretation Comments POC-GLUCOSE METER 91 mg/dL 70-110 : TESTED A T [facility] 1317 (BEAKER) (test code = [address], [address]) [facility] [address]: [employer] Business Analyst/Techni get ID = [id number] for Castillo Brown POCT-GLUCOSE [id number] 22:00:34 Test Item Value Reference Range Interpretation Comments POC-GLUCOSE METER 75 mg/dL 70-110 : TESTED A T [facility] [address]17 (BEAKER) (test code = [address], [address]) [place] [id number]: [employer] Business Analyst/Techni get ID = [id number] for Basilia Oglesby POCT-GLUCOSE [id number] 17:05:02 Test Item Value Reference Range Interpretation Comments POC-GLUCOSE METER 93 mg/dL 70-110 : TESTED A T [facility] [address]17 (BEAKER) (test code = [address], [address]) [place] [id number]: [employer] Business Analyst/Techni get ID = [id number] for Lars Victorina kruegera POCT-GLUCOSE [id number] 12:30:02 Test Item Value Reference Range Interpretation Comments POC-GLUCOSE METER 76 mg/dL 70-110 : TESTED A T [facility] [address] (BEAKER) (test code = [address], [address]) [place] [id number]: [employer] Business Analyst/Techni get ID = [id number] for Lars h, Yuliya RAD, FOOT, MIN 3 VIEWS, [id number] 09:45:00Reason for exam:->right foot infection, [facility] 1935 Sex: MFINAL REPORT Exam: RAD, FOOT, MIN 3 VIEWS, RIGHTDate: 10/09/2021 9:42 AM Indication:right foot infectionComparison: None DISCUSSION/IMPRESSION: AP and lateral views of the right foot were obtained. The osseous structures appear generally well mineralized. Diffuse age-related degenerative changes seen to the joints. Soft tissue edema most prominent between the first and second phalanxes, with prominent plantar and dorsal edema appreciated on lateral view. Within this edematous area there are multifocal lucencies consistent with gas, abscess. Diffuse vascular calcifications are noted. If there is continued concern for osseous extension of infectious process recommend MRIfor further evaluation. Signed: Judit Can MDReport Verified Date/Time: 10/09/2021 09:45:59 Reading Location: [facility] Radiology Reading Room POCT-GLUCOSE [id number] 09:34:57 Test Item Value Reference Range Interpretation Comments POC-GLUCOSE METER 83 mg/dL 70-110 : TESTED A T [facility] [address] (BEAKER) (test code = [address], [address]) [facility] [address]: [employer] Business Analyst/Techni get ID = [id number] for Yuliya Zelaya BASIC METABOLIC [id number] 05:42:29 Test Item Value Reference Range Interpretation Comments SODIUM (BEAKER) 137 meq/L 135-148 (test code = 381) POTASSIUM (BEAKER) 3.8 meq/L 3.6-5.5 (test code = 379) CHLORIDE (BEAKER) 103 meq/L 98-106 (test code = 382) CO2 (BEAKER) (test 22 meq/L 20-29 code = 355) BLOOD UREA NITROGEN 35 mg/dL 10-26 H (BEAKER) (test code = 354) CREATININE (BEAKER) 1.82 mg/dL 0.50-1.20 H (test code = 358) GLUCOSE RANDOM 67 mg/dL 70-110 L (BEAKER) (test code = 652) CALCIUM (BEAKER) 8.5 mg/dL 8.5-10.5 (test code = 697) EGFR (BEAKER) (test 35 mL/min/1.73 ESTIMA THOMAS GFR IS code = 1092) sq m NOT ACCURATE CREATININE CLEARANCE IN PREDICTING GLOMERULAR FILTRATION RATE . ESTIMATED GFR I S NOT APPLICABLE FOR DIALYSIS PATIEN TS. [employer] Business Analyst ID - [id number] ID - [id number] ID - [id number] ID - [id number] ID - [id number] ID - [id number] ID - [id number] ID - [id number] ID - [id number] ID - [id number] ID - [id number] ID - [id number] (HEMOGRAM ONLY)2021-10-09 05:42:28 Test Item Value Reference Range Interpretation Comments WHITE BLOOD CELL COUNT (BEAKER) 12.3 K/ L 4.0-10.0 H (test code = 775) RED BLOOD CELL COUNT (BEAKER) 3.71 M/ L 4.20-5.80 L (test code = 761) HEMOGLOBIN (BEAKER) (test code = 11.2 GM/DL 13.0-16.8 L 410) HEMATOCRIT (BEAKER) (test code = 33.8 % 36.0-50.0 L 411) MEAN CORPUSCULAR VOLUME (BEAKER) 91.1 fL 82.0-99.0 (test code = 753) MEAN CORPUSCULAR HEMOGLOBIN 30.2 pg 27.0-33.0 (BEAKER) (test code = 751) MEAN CORPUSCULAR HEMOGLOBIN CONC 33.1 GM/DL 32.0-36.0 (BEAKER) (test code = 752) RED CELL DISTRIBUTION WIDTH 12.6 % 12.0-15.0 (BEAKER) (test code = 412) PLATELET COUNT (BEAKER) (test 223 K/CU MM 150-430 code = 756) MEAN PLATELET VOLUME (BEAKER) 10.3 fL 6.0-11.5 (test code = 754) NUCLEATED RED BLOOD CELLS 0 /100 WBC 0-0 (BEAKER) (test code = 413) POCT-GLUCOSE [id number] 21:18:26 Test Item Value Reference Range Interpretation Comments POC-GLUCOSE METER 99 mg/dL 70-110 : TESTED A T [facility] (BEAKER) (test code = [address], [address]) [facility] [address]: [employer] Business Analyst/Techni get ID = [id number] for binta Tavarez POCT-GLUCOSE [id number] 19:04:18 Test Item Value Reference Range Interpretation Comments POC-GLUCOSE METER 88 mg/dL 70-110 : TESTED A T [facility] (BEAKER) (test code = [address], 1538) [facility] [address]: [employer] Business Analyst/Techni get ID = [id number] for Keron Monte BASIC METABOLIC [id number] 18:58:38 Test Item Value Reference Range Interpretation Comments SODIUM (BEAKER) 134 meq/L 135-148 L (test code = 381) POTASSIUM (BEAKER) 4.1 meq/L 3.6-5.5 (test code = 379) CHLORIDE (BEAKER) 102 meq/L 98-106 (test code = 382) CO2 (BEAKER) (test 21 meq/L 20-29 code = 355) BLOOD UREA NITROGEN 37 mg/dL 10-26 H (BEAKER) (test code = 354) CREATININE (BEAKER) 2.06 mg/dL 0.50-1.20 H (test code = 358) GLUCOSE RANDOM 86 mg/dL 70-110 (BEAKER) (test code = 652) CALCIUM (BEAKER) 8.4 mg/dL 8.5-10.5 L (test code = 697) EGFR (BEAKER) (test 31 mL/min/1.73 ESTIMA THOMAS GFR IS code = 1092) sq m NOT ACCURATE CREATININE CLEARANCE IN PREDICTING GLOMERULAR FILTRATION RATE . ESTIMATED GFR I S NOT APPLICABLE FOR DIALYSIS PATIEN TS. [employer] Business Analyst ID - DSENSONOperator ID - DSENSONOperator ID - DSENSONOperator ID - DSENSONOperator ID - DSENSONOperator ID - DSENSONOperator ID - DSENSONOperator ID - DSENSONOperator ID - DSENSONOperator ID - DSENSONOperator ID - DSENSONOperator ID - DSENSONPOCT-GLUCOSE [id number] 17:01:40 Test Item Value Reference Range Interpretation Comments POC-GLUCOSE METER 69 mg/dL 70-110 L : TESTED A T [facility] (BEAKER) (test code = [address], [address]38) [facility] [address]: [employer] Business Analyst/Techni get ID = [id number] for Yuliya Zelaya CREATINE KINASE (CK)2021-10-08 13:17:34 Test Item Value Reference Range Interpretation Comments CREATINE KINASE TOTAL (BEAKER) (test 263 U/L 40-250 H code = 380) [employer] Business Analyst ID - DSENSONPOCT-GLUCOSE [id number] 11:42:18 Test Item Value Reference Range Interpretation Comments POC-GLUCOSE METER 79 mg/dL 70-110 : TESTED A T [facility] [address] (BEAKER) (test code = [address], [address]) [place] [id number]: [employer] Business Analyst/Techni get ID = [id number] for Lars Yuliya krueger POCT-GLUCOSE [id number] 09:12:00 Test Item Value Reference Range Interpretation Comments POC-GLUCOSE METER 81 mg/dL 70-110 : TESTED A T [facility] (BEAKER) (test code = [address], [address]) [place] [address]: [employer] Business Analyst/Techni get ID = [id number] for Lars hFabiolaYuliya TROPONIN [id number] 04:27:40 Test Item Value Reference Range Interpretation Comments TROPONIN I (BEAKER) (test code = 0.03 ng/mL 0.00-0.15 397) Troponin I (TnI) levels must be interpreted in the context of the presenting symptoms and the clinical findings. Elevated TnI levels indicate myocardial damage, but are not specific for ischemic heart disease. Elevated TnI levels are seen in patients with other cardiac conditions (including myocarditis and congestive heart failure), and slight TnI elevations occur in patients with other conditions, including sepsis, renal failure, acidosis, acute neurological disease, and persistent tachyarrhythmia.[employer] Business Analyst ID - [id number] W/PLT COUNT & AUTO [id number] 03:58:04 Test Item Value Reference Range Interpretation Comments WHITE BLOOD CELL COUNT (BEAKER) 16.4 K/ L 4.0-10.0 H (test code = 775) RED BLOOD CELL COUNT (BEAKER) 3.37 M/ L 4.20-5.80 L (test code = 761) HEMOGLOBIN (BEAKER) (test code = 10.2 GM/DL 13.0-16.8 L 410) HEMATOCRIT (BEAKER) (test code = 30.8 % 36.0-50.0 L 411) MEAN CORPUSCULAR VOLUME (BEAKER) 91.4 fL 82.0-99.0 (test code = 753) MEAN CORPUSCULAR HEMOGLOBIN 30.3 pg 27.0-33.0 (BEAKER) (test code = 751) MEAN CORPUSCULAR HEMOGLOBIN CONC 33.1 GM/DL 32.0-36.0 (BEAKER) (test code = 752) RED CELL DISTRIBUTION WIDTH 12.7 % 12.0-15.0 (BEAKER) (test code = 412) PLATELET COUNT (BEAKER) (test 203 K/CU MM 150-430 code = 756) MEAN PLATELET VOLUME (BEAKER) 10.3 fL 6.0-11.5 (test code = 754) NUCLEATED RED BLOOD CELLS 0 /100 WBC 0-0 (BEAKER) (test code = 413) NEUTROPHILS RELATIVE PERCENT 83 % (BEAKER) (test code = 429) LYMPHOCYTES RELATIVE PERCENT 9 % (BEAKER) (test code = 430) MONOCYTES RELATIVE PERCENT 6 % (BEAKER) (test code = 431) EOSINOPHILS RELATIVE PERCENT 1 % (BEAKER) (test code = 432) BASOPHILS RELATIVE PERCENT 0 % (BEAKER) (test code = 437) NEUTROPHILS ABSOLUTE COUNT 13.61 K/ L 1.80-8.00 H (BEAKER) (test code = 670) LYMPHOCYTES ABSOLUTE COUNT 1.44 K/ L 1.48-4.50 L (BEAKER) (test code = 414) MONOCYTES ABSOLUTE COUNT (BEAKER) 1.00 K/ L 0.00-1.30 (test code = 415) EOSINOPHILS ABSOLUTE COUNT 0.13 K/ L 0.00-0.50 (BEAKER) (test code = 416) BASOPHILS ABSOLUTE COUNT (BEAKER) 0.06 K/ L 0.00-0.20 (test code = 417) IMMATURE GRANULOCYTES-RELATIVE 1 % 0-0 H PERCENT (BEAKER) (test code = 2801) URINALYSIS W/ REFLEX URINE [id number] 23:22:56 Test Item Value Reference Range Interpretation Comments COLOR (BEAKER) (test code = 470) Yellow CLARITY (BEAKER) (test code = 469) Clear SPECIFIC GRAVITY UA (BEAKER) (test 1.020 1.001-1.035 code = 468) PH UA (BEAKER) (test code = 467) 6.0 5.0-8.0 PROTEIN UA (BEAKER) (test code = 30 mg/dL Negative A 464) GLUCOSE UA (BEAKER) (test code = Negative Negative 365) KETONES UA (BEAKER) (test code = Negative Negative 371) BILIRUBIN UA (BEAKER) (test code = Negative Negative 462) BLOOD UA (BEAKER) (test code = 461) Small Negative A NITRITE UA (BEAKER) (test code = Negative Negative 465) LEUKOCYTE ESTERASE UA (BEAKER) Negative Negative (test code = 466) UROBILINOGEN UA (BEAKER) (test code 0.2 mg/dL 0.2-1.0 = 463) BACTERIA (BEAKER) (test code = 517) Moderate RBC UA-MANUAL (BEAKER) (test code = 5-10 /HPF 1659) WBC UA-MANUAL (BEAKER) (test code = <5 /HPF 1661) SQUAMOUS EPITHELIAL MANUAL (BEAKER) <5 /HPF (test code = 1663) SOURCE(BEAKER) (test code = 2795) TROPONIN [id number] 22:34:55 Test Item Value Reference Range Interpretation Comments TROPONIN I (BEAKER) (test code = 0.04 ng/mL 0.00-0.15 397) Troponin I (TnI) levels must be interpreted in the context of the presenting symptoms and the clinical findings. Elevated TnI levels indicate myocardial damage, but are not specific for ischemic heart disease. Elevated TnI levels are seen in patients with other cardiac conditions (including myocarditis and congestive heart failure), and slight TnI elevations occur in patients with other conditions, including sepsis, renal failure, acidosis, acute neurological disease, and persistent tachyarrhythmia.[employer] Business Analyst ID - DSENSONLACTIC ACID, VENOUS 2021-10-07 22:33:23 Test Item Value Reference Range Interpretation Comments LACTATE BLOOD 1.98 mmol/L See_Comment [Automated me ssage] VENOUS (2) (BEAKER) The syst em which (test code = 2872) generated this result transmitted ref erence range: 0.50-<2. 00. The reference range was not used to interpr et this result as normal/abnormal . [employer] Business Analyst ID - DSENSONOperator ID - DSENSONOperator ID - DSENSONOperator ID - DSENSONLIPID [id number] 22:32:52 Test Item Value Reference Range Interpretation Comments TRIGLYCERIDES (BEAKER) (test code = 65 mg/dL 540) CHOLESTEROL (BEAKER) (test code = 75 mg/dL 631) HDL CHOLESTEROL (BEAKER) (test code 26 mg/dL = 976) LDL CHOLESTEROL CALCULATED (BEAKER) 36 mg/dL (test code = 633) Triglyceride Reference Range: Low Risk <150 Borderline 150-199 High Risk 200-499 Very High Risk >=500Cholesterol Reference Range: Low Risk <200 Borderline 200-239 High Risk >240HDL Cholesterol Reference Range: Low Risk >=60 High Risk <40LDL Cholesterol Reference Range: Optimal <100 Near Optimal 100-129 Borderline 130-159 High 160-189 Very High >=190 [employer] Business Analyst ID - DSENSONOperator ID - DSENSONOperator ID - DSENSON COMPREHENSIVE METABOLIC [id number] 22:32:41 Test Item Value Reference Range Interpretation Comments TOTAL PROTEIN 6.3 gm/dL 6.0-8.5 (BEAKER) (test code = 770) ALBUMIN (BEAKER) 3.2 g/dL 3.5-5.0 L (test code = 1145) ALKALINE PHOSPHATASE 82 U/L 30-115 (BEAKER) (test code = 346) BILIRUBIN TOTAL 0.6 mg/dL 0.1-1.2 (BEAKER) (test code = 377) SODIUM (BEAKER) (test 133 meq/L 135-148 L code = 381) POTASSIUM (BEAKER) 4.1 meq/L 3.6-5.5 (test code = 379) CHLORIDE (BEAKER) 98 meq/L 98-106 (test code = 382) CO2 (BEAKER) (test 24 meq/L 20-29 code = 355) BLOOD UREA NITROGEN 42 mg/dL 10-26 H (BEAKER) (test code = 354) CREATININE (BEAKER) 2.39 mg/dL 0.50-1.20 H (test code = 358) GLUCOSE RANDOM 102 mg/dL 70-110 (BEAKER) (test code = 652) CALCIUM (BEAKER) 8.5 mg/dL 8.5-10.5 (test code = 697) AST (SGOT) (BEAKER) 23 U/L 5-40 (test code = 353) ALT (SGPT) (BEAKER) 16 U/L 5-50 (test code = 347) EGFR (BEAKER) (test 26 mL/min/1.73 ESTIMA THOMAS GFR IS code = 1092) sq m NOT ACCURATE CREATININE CLEARANCE IN PREDICTING GLOMERULAR FILTRATION RATE . ESTIMATED GFR I S NOT APPLICABLE FOR DIALYSIS PATIEN TS. [employer] Business Analyst ID - DSENSONOperator ID - DSENSONOperator ID - DSENSONOperator ID - DSENSONOperator ID - DSENSONOperator ID - DSENSONOperator ID - DSENSONOperator ID - DSENSONOperator ID - DSENSONOperator ID - DSENSONOperator ID - DSENSONOperator ID - DSENSONOperator ID - DSENSONOperator ID - DSENSONOperatorID - DSENSONOperator ID - [id number] 22:28:51 Test Item Value Reference Range Interpretation Comments MAGNESIUM (BEAKER) (test code = 1.7 mg/dL 1.5-3.0 627) [employer] Business Analyst ID - DSENSONOperator ID - DSENSONOperator ID - DSENSONOperator ID - [id number] 22:25:09 Test Item Value Reference Range Interpretation Comments PHOSPHORUS (BEAKER) (test code = 2.1 mg/dL 2.5-4.5 L 604) [employer] Business Analyst ID - DSENSONPROTHROMBIN [id number] 22:22:50 Test Item Value Reference Range Interpretation Comments PROTIME (BEAKER) 11.9 seconds 9.3-12.0 Final Infor mation (test code = 759) (Auto Outp ut) INR (BEAKER) (test 1.08 See_Comment Final Inf ormation code = 370) (Auto Output) [Automated mess age] The system [employer] generated this result transmitted ref erence range: <=5.90. The reference range was not used to int erpret this result as normal/abnormal . RECOMMENDED COUMADIN/WARFARIN INR THERAPY RANGESSTANDARD DOSE: 2.0 - 3.0 Includes: PROPHYLAXIS forvenous thrombosis, systemic embolization; TREATMENT for venous thrombosis and/or pulmonary embolus.HIGH RISK: Target INR is 2.5-3.5 for patients with mechanical heart valves.HEMOGLOBIN [id number] 22:20:33 Test Item Value Reference Range Interpretation Comments HEMOGLOBIN A1C (BEAKER) (test code = 5.9 % 4.3-6.1 368) [employer] Business Analyst ID - DSENSONPOCT-GLUCOSE [id number] 19:38:40 Test Item Value Reference Range Interpretation Comments POC-GLUCOSE METER 116 mg/dL 70-110 H : TESTED A T [facility] (BEAKER) (test code [address], = 1538) [facility] [address]: [employer] Business Analyst/Techni get ID = [id number] for Mechelle Burt B-Type Natriuretic [id number] 15:34:00 Test Item Value Reference Range Interpretation Comments B-Type Natriuretic Peptide (test 33.8 pg/mL 0.0-100.0 N code = 516652) Glycosylated [id number] 09:51:00 Test Item Value Reference Range Interpretation Comments HBA1c (test code = HBA1C) 7.6 % 4.8-5.9 H Lipid [id number] 22:03:00 Test Item Value Reference Range Interpretation Comments Cholesterol (test 209 mg/dL 0-200 H code = CHOL) Triglycerides (test 241 mg/dL 9-200 H Unable t o calculate, code = TRIG) Trig >400 HDL (test code = 32 mg/dL 40-60 L HDL) Chol/HDL (test code 6.5 Ratio 0.0-5.0 H = CHOLPHDL) LDL, Calculated 129 mg/dL 0-130 N (NOTE)RISK O F HEART (test code = LDLC) DISEASEPu blished by [place] Heart AssociationAnal yte Optim al Boderline Increased RiskC HOL <200 200-239 >240TRI G <150 150-199 >200HDL Male: >60 <40HDL Female: >60 <50 LDL < 100 130-15 9 >160 LDL NEAR OPTIMAL IS 100- 129 VLDL (test code = 48 mg/dL 5-40 H VLDL) LDL/HDL (test code = 4 LDLPHDL) Comprehensive Metabolic [id number] 22:03:00 Test Item Value Reference Range Interpretation Comments Sodium (test code = 140 mmol/L 135-145 N NA) Potassium (test 5.2 mmol/L 3.5-5.1 H code = K) Chloride (test code 103 mmol/L 98-105 N = CL) Carbon Dioxide 21 mmol/L 22-29 L (test code = CO2) Glucose (test code 70 mg/dL 70-115 N = GLU) Blood Urea Nitrogen 53 mg/dL 8-23 H (test code = BUN) Creatinine (test 2.3 mg/dL 0.7-1.2 H code = CREAT) Calcium (test code 10.1 mg/dL 8.3-10.5 N = CA) Prot Total (test 8.1 g/dL 6.4-8.3 N code = TP) Albumin (test code 5.0 g/dL 3.5-5.2 N = ALB) A/G Ratio (test 1.6 Ratio code = AGRATIO) Globulin (test code 3.1 2.9-3.1 N = GLOB) Bili Total (test 0.3 mg/dL 0.1-0.9 N code = TBIL) Alk Phos (test code 84 U/L 40-129 N = APHOS) AST (test code = 23 U/L 1-40 N AST) ALT (test code = 20 U/L 1-41 N ALT) BUN/Creatinine 23.0 Ratio (test code = BCRATIO) Anion Gap (test 16 mmol/L 7-16 N code = AGAP) Estimated GFR (test 29 eGFR (es timated code = GFR) mL/min/1.73m2 Glomerular Chas tration Rate) is an est imated value,calculate d from the patient's s gloria creatinine usin g the MDRD equation.I t is NOT the patient 's actual GFR. The eGFR provides a more clinicallyusefu l measure of kidn ey disease than se rum creatinine alone.This calculation dennise es sex and race into account, if the informationis provided. If th e race is not provided , and the patient isAfrican-Ameri can, multiply by 1.2 12. If sex is not prov ided, and thepatient is female, multipl y by 0.742. Results for patients <18 ye ars ofage have not been validated by th e MDRD study and shoul d be interpretedwith caution.eGFR Re sult Interpretation: eGFR > or = 60 is in t he Normal RangeeGF R < 60 may mean kidney diseaseeGFR < 1 5 may mean kidney failureRange s recommended by the National Kidney Foundation,http ://nkd ep.nih.gov CBC with [id number] 21:43:00 Test Item Value Reference Range Interpretation Comments WBC (test code = WBC) 10.8 K/cumm 4.4-10.5 H RBC (test code = RBC) 4.71 M/cumm 4.10-5.70 N Hemoglobin (test code = HGB) 14.3 gm/dL 13.4-17.4 N Hematocrit (test code = HCT) 45.9 % 38.7-52.0 N MCV (test code = MCV) 97.5 fL 80-100 N MCH (test code = MCH) 30.3 pg 27.0-32.5 N MCHC (test code = MCHC) 31.1 g/dL 32.0-37.5 L RDW (test code = RDW) 15.6 % 11.5-14.5 H Platelet Count (test code = 233 K/cumm 140-440 N PLTCT) MPV (test code = MPV) 10.0 fL Diff Method (test code = DIFFM) Auto Neutrophil (test code = NEUT) 61.9 % 36-70 N Lymphocyte (test code = LYMPH) 16.8 % 12-44 N Monocyte (test code = MONO) 5.9 % 0-11 N Eosinophil (test code = EOS) 14.6 % 0-7 H Basophil (test code = BASO) 0.8 % 0-2 N Neutro Abs (test code = ANEUT) 6.7 K/cumm 1.6-7.4 N Lymph Abs (test code = ALYMPH) 1.8 K/cumm 0.5-4.6 N Fergus Abs (test code = AMONO) 0.6 K/cumm 0.0-1.2 N Eos Abs (test code = AEOS) 1.57 K/cumm 0.00-0.74 H Baso Abs (test code = ABASO) 0.1 K/cumm 0.00-0.21 N
[2022-02-09 22:03] LABS: Urine Appearance Clear (Clear); Urine Bilirubin Negative (Negative); Urine Blood 2+ (Negative); Urine Color Yellow (Yellow); Urine Glucose Negative (Negative); Urine Protein 1+ (Negative); Urine Urobilinogen 0.2 mg/dL (0.2-1.0); Urine pH 5.5 (5.0-7.0)
[2022-02-09 22:08] LABS: Urine Microscopic Reflex ORDER UMIC
[2022-02-09 22:10] LABS: Urine Bacteria <20 /HPF (NONE SEEN); Urine RBC 20-50 /HPF (NONE SEEN)
[2022-02-09] MEDS ORDERED: ACETAMINOPHEN 500 MG TAB PO PRN (22:23)
[2022-02-09] MEDS ORDERED: MELATONIN 3 MG TABLET PO PRN (22:24)
[2022-02-09] MEDS ORDERED: DOCUSATE NA/SENNA CONC 1 TAB PO PRN (22:25)
[2022-02-09] MEDS ORDERED: D50W 25 GM/50 ML SYRINGE IV PRN (22:31)
[2022-02-09] MEDS ORDERED: GLUCAGON 1 MG/VIAL IM PRN (22:31)
[2022-02-09] MEDS: LINEZOLID 600 MG TAB PO SCH (22:52)
[2022-02-09] MEDS: INSULIN -REGULAR HUMAN 50 UNIT/0.5 ML ML SQ SCH (22:53)
[2022-02-09] MEDS: ATORVASTATIN 40 MG TAB PO SCH (22:53)
[2022-02-09] MEDS: APIXABAN 2.5 MG TABLET PO SCH (22:53)
[2022-02-10 06:39] LABS: Absolute Lymphocytes (CBC) 1.2 K/uL (0.7-4.9); Hematocrit 33.7 % (39.6-49.0); Lymphocytes % 14.7 % (15.3-44.8); MPV 8.1 fL (7.6-11.3); RBC Red Blood Cell Count 4.02 M/uL (4.33-5.43)
[2022-02-10 06:47] LABS: Albumin 2.5 g/dL (3.4-5.0); Magnesium 2.1 mg/dL (1.8-2.4); Potassium 3.5 mmol/L (3.5-5.1); Prealbumin 12.4 mg/dL (20-40)
[2022-02-10] MEDS: INSULIN -REGULAR HUMAN 50 UNIT/0.5 ML ML SQ SCH ×4 (07:13→20:18)
[2022-02-10] MEDS: PIOGLITAZONE 15 MG TAB PO SCH ×5 (07:58→20:17)
[2022-02-10] MEDS: SERTRALINE HCL 50 MG TAB PO SCH (07:59)
[2022-02-10] MEDS: LINEZOLID 600 MG TAB PO SCH ×3 (07:59→20:17)
[2022-02-10] MEDS: AMIODARONE HCL 200 MG TAB PO SCH (07:59)
[2022-02-10] MEDS: lisinopriL 10 MG TAB PO SCH (08:00)
[2022-02-10] MEDS: APIXABAN 2.5 MG TABLET PO SCH ×2 (08:00→20:17)
[2022-02-10] MEDS: CLOPIDOGREL 75 MG TABLET PO SCH (08:00)
[2022-02-10] MEDS: glipiZIDE 5 MG TAB PO SCH (08:00)
[2022-02-10] MEDS: FUROSEMIDE 20 MG TABLET PO SCH (08:00)
[2022-02-10] MEDS: LIDOCAINE 4% PATCH TOP SCH (14:03)
--- NOTE | 2022-02-10 14:52 | R.HP ---
HISTORY AND PHYSICAL FACILITY: [facility] ENCOUNTER DATE AND TIME: 02/10/2022 14:45 (CDT) MR#: [id number] NAME ALICIA CABRERA ADDRESS: [address] [place], [place] [id number] [facility] [place] [address]IP [id number] PHONE: ( DATE OF : 1935 AGE: 86 SSN# [id number] GENDER: Male MARITAL STATUS Unknown PRE-HOSPITAL LIVING SETTING 01 - Home (private home/apt. board/care, assisted living, [facility], transitional living) PRE-HOSPITAL LIVING WITH Alone ENCOUNTER PHYSICIAN: Dr. Dalton Helms M.D. REFERRING DOCTOR: DATE OF ADMISSION: 02/10/2022 14:46 (CDT) REFERRING FACILITY [facility] HOME TYPE AND DETAILS: Type of home: single family house # of steps to enter the residence: 0 # of levels in the residence: 1 # of steps within the residence: 0 ONSET DATE: 02/04/2022 PRIMARY DIAGNOSIS-RELATED SURGERIES: N/A HISTORY OF PRESENT ILLNESS (HPI): Pt. is a 86 yo Right-handed male. On 02/04/2022 he was admitted to [facility] with diagnosis CHF. His impairment category is Cardiac 09 - Cardiac Disorders (09). Pre-morbidly, Pt. was independent/mod-I in Locomotion, Safety Awareness, Social Cognition, and Balanc e; and he had good Transfers Control, Sphincter Control, Self-Care, Communication, and Endurance. Currently, he has deficits of Locomotion, Safety Awareness, Social Cognition, Transfers Control, Roby nce, Sphincter Control, Self-Care, Endurance, and Communication. Pt. is now referred to [facility] for acute in-patient rehabilitation in order to maximize patient's functional independence in activities of daily living, strength, ROM, and mobi lity. Patient has realistic goal of being discharged at assistance level 7-Ind to reside at Home with Pt s elf. 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 DISCHARGE Dehydration DM BACK PAIN SVT HYPOTENSION CHF POSITIVE BLOOD CULTURE PAIN depression DECREASED AMBULATION GENERAL WEAKNESS PAST SURGICAL HISTORY: AICD PTCA CARDIAC STENTS PACEMAKER SOCIAL HISTORY: - Home Living Alone REVIEW OF SYSTEMS: - Gen No Chills Fatigue No Fever - Eyes No Double Vision No itchiness - ENMT No Difficulty Swallowing - CVS Chest Discomfort No Chest Pain Fatigue No Weight Gain - Resp No Cough Shortness of Breath - GI Continent No Abdominal Pain No Constipation No Diarrhea - Continent No Kidney Pain No Painful Urination No Urinary Urgency - MSK No Joint Pain Muscle Cramps Stiffness - Skin No Itching No Rash No Suspicious Lesions - Neuro Coordination Difficulty Difficulty with Concentration No Memory Loss No Seizures Weakness - Psych No Anxiety No Depression No HIV Exposure No Persistent Infections No Seasonal Allergies - Endo No Cold/Heat Intolerance No Excessive Hunger No Excessive Thirst No Excessive Urination PHYSICAL EXAM - Gen Alert and awake Lying in bed No apparent distress Oriented to: person, time, and place - Skin No skin breakdown. Normacephalic - Eyes No abnormalities - ENMT No abnormalities - Neck No abnormalities - CVS RRR - Chest No abnormalities - Abd Obese, soft, nontender - GI + bowel sounds Deferred - No abnormalities - Ext Mild bilateral lower extremity edema. - MSK 4+/5 weakness in both lower extremities. - Neuro No focal deficits VITAL SIGNS Temperature: 97.6 F SBP/DBP: 117/69 Pulse: 92 Resp: 16 NURSING: - Shower allowing shower PRECAUTIONS: - Fall Precaution SAFTY AND FALL ACTIVITIES OOB only with supervision QI SCORES: - Self-Care A. Eating 03-Partial/moderate assistance B. Oral hygiene 03-Partial/moderate assistance C. Toileting hygiene 03-Partial/moderate assistance E. Shower/bathe self 03-Partial/moderate assistance F. Upper body dressing 03-Partial/moderate assistance G. Lower body dressing 03-Partial/moderate assistance H. Putting on/taking off footwear 88-Not attempted due to medical condition or safety concerns - Mobility A. Roll left and right 04-Supervision or touching assistance B. Sit to lying 03-Partial/moderate assistance C. Lying to sitting on side of bed 03-Partial/moderate assistance D. Sit to stand 03-Partial/moderate assistance E. Chair/[id number]-[id number] transfer 03-Partial/moderate assistance F. Toilet transfer 03-Partial/moderate assistance G. Car transfer 88-Not attempted due to medical condition or safety concerns I. Walk 10 feet 03-Partial/moderate assistance J. Walk 50 feet with two turns 88-Not attempted due to medical condition or safety concerns K. Walk 150 feet 88-Not attempted due to medical condition or safety concerns L. Walking 10 feet on uneven surfaces 88-Not attempted due to medical condition or safety concerns M. 1 step (curb) 88-Not attempted due to medical condition or safety concerns N. 4 steps 88-Not attempted due to medical condition or safety concerns O. 12 steps 88-Not attempted due to medical condition or safety concerns P. Picking up object 88-Not attempted due to medical condition or safety concerns R. Wheel 50 feet with two turns S. Wheel 150 feet - Bladder and Bowel Bladder continence Bowel continence - Endurance Fair - Balance Fair - Safety Awareness Fair CURRENT FUNC. DEFICITS: Self-Care, Mobility, Endurance, Balance, and Safety Awareness MEDICATIONS: - Other See attached MAR (Medication Administration Record) ASSESSMENT: Pt. is a 86 yo Right-handed male.On 02/04/2022 he was admitted to [facility] with diagnosis C HF.His impairment category is Cardiac 09 - Cardiac Disorders (09).Pre-morbidly, Pt. was independent/ mod-I in Locomotion, Safety Awareness, Social Cognition, and Balance; and he had good Transfers Contr ol, Sphincter Control, Self-Care, Communication, and Endurance.Currently, he has deficits of Locomoti on, Safety Awareness, Social Cognition, Transfers Control, Balance, Sphincter Control, Self-Care, End urance, and Communication.Pt. is now referred to [facility] for acute in-patie nt rehabilitation in order to maximize patient's functional independence in activities of daily livin g, strength, ROM, and mobility.- Rehab Goal Patient has realistic goal of being discharged at assistance level 7-Ind to reside at Home with Pt s elf. - Physical Therapy Gait dysfunction - to improve, our physical therapists will perform initial evaluation of pt's status upon admission and devise an individualized program for Gait Training, and Wheel Chair mobility Inability to transfer - to improve, our physical therapists will perform initial evaluation of pt's s tatus upon admission and devise an individualized program for Bed mobility Need for home safety evaluation - to improve, our physical therapists will perform initial evaluation of pt's status upon admission and devise an individualized program for Home Evaluation Need in caregiver upon discharge - to improve, our physical therapists will perform initial evaluatio n of pt's status upon admission and devise an individualized program for Caregiver Training New precaution - to improve, our physical therapists will perform initial evaluation of pt's status u gabi admission and devise an individualized program for Patient precaution education Edema - to improve, our physical therapists will perform initial evaluation of pt's status upon admi ssion and devise an individualized program for Elevation Training, and Lymphedema Therapy Poor balance - to improve, our physical therapists will perform initial evaluation of pt's status upo n admission and devise an individualized program for Balance Training Poor endurance - to improve, our physical therapists will perform initial evaluation of pt's status u gabi admission and devise an individualized program for Endurance Training Weakness - to improve, our physical therapists will perform initial evaluation of pt's status upon ad mission and devise an individualized program for Aquatic Therapy, Neuromuscular Reeducation, and Stre ngthening Achieving independence - to improve, our physical therapists will perform initial evaluation of pt's status upon admission and devise an individualized program for Community Reintegration Activities - Occupational Therapy ADL deficits - to improve, our occupation therapists will perform initial evaluation of pt's status u gabi admission and devise an individualized program for Bathing, Bed mobility, Community Reintegration , Cooking, Dressing, Eating, Fine Motor Skills, Grooming, Homemaking, Kitchen Mobility, Laundry, Yodit ent Education, Safety Awareness, Splinting - Positioning, Transfers(Toilet, Tub, Shower), and Wheel C hair Management Cognitive deficits - to improve, our occupation therapists will perform initial evaluation of pt's st atus upon admission and devise an individualized program for Cognition - orientation Need for animal care taker - to improve, our occupation therapists will perform initial evaluation of pt's s tatus upon admission and devise an individualized program for Caregiver Training Weakness - to improve, our occupation therapists will perform initial evaluation of pt's status upon admission and devise an individualized program for Aquatic Therapy, Balance, Endurance, UE ROM, and U E strengthening MEDICAL PLAN: - Diet Type Start Regular - Diet - Liquid Texture Start Regular - Tube Feed Start N/A - Fall Precaution SAFTY AND FALL - Other See attached MAR (Medication Administration Record) - Diet - Solid Texture Regular - Shower shower DISCHARGE PLAN: - Estimated Length of Stay (days) 10. - Consensus on plan Discharge plan has been discussed with primary caregiver. Patient/Family is in agreement with the harish n. Primary caregiver is in agreement with the plan. - Patient/Family Goals Return home independently. - Planned Living Setting Upon Discharge Home, to live alone. Transitional Living. Primary caregiver: Pt self. SIGNATURE PANEL: (CDT)
[2022-02-10] MEDS: ATORVASTATIN 40 MG TAB PO SCH (20:17)
[2022-02-11] MEDS: PIOGLITAZONE 15 MG TAB PO SCH ×4 (07:16→20:02)
[2022-02-11] MEDS: SERTRALINE HCL 50 MG TAB PO SCH (07:16)
[2022-02-11] MEDS: APIXABAN 2.5 MG TABLET PO SCH ×2 (07:17→20:02)
[2022-02-11] MEDS: FUROSEMIDE 20 MG TABLET PO SCH (07:17)
[2022-02-11] MEDS: glipiZIDE 5 MG TAB PO SCH (07:18)
[2022-02-11] MEDS: AMIODARONE HCL 200 MG TAB PO SCH (07:18)
[2022-02-11] MEDS: CLOPIDOGREL 75 MG TABLET PO SCH (07:18)
[2022-02-11] MEDS: LINEZOLID 600 MG TAB PO SCH ×2 (07:19→20:01)
[2022-02-11] MEDS: lisinopriL 10 MG TAB PO SCH (07:19)
[2022-02-11] MEDS: INSULIN -REGULAR HUMAN 50 UNIT/0.5 ML ML SQ SCH ×4 (07:20→19:53)
[2022-02-11] MEDS: LIDOCAINE 4% PATCH TOP SCH (07:23)
[2022-02-11] MEDS: TRAMADOL HCL 50 MG TAB PO PRN (20:00)
[2022-02-11] MEDS: ATORVASTATIN 40 MG TAB PO SCH (20:02)
[2022-02-12] MEDS: INSULIN -REGULAR HUMAN 50 UNIT/0.5 ML ML SQ SCH ×4 (07:30→20:30)
[2022-02-12] MEDS: PIOGLITAZONE 15 MG TAB PO SCH ×4 (07:30→20:29)
[2022-02-12] MEDS: AMIODARONE HCL 200 MG TAB PO SCH (08:00)
[2022-02-12] MEDS: glipiZIDE 5 MG TAB PO SCH (08:00)
[2022-02-12] MEDS: lisinopriL 10 MG TAB PO SCH (08:00)
[2022-02-12] MEDS: TRAMADOL HCL 50 MG TAB PO PRN (08:04)
[2022-02-12] MEDS: LINEZOLID 600 MG TAB PO SCH ×2 (08:04→20:29)
[2022-02-12] MEDS: CLOPIDOGREL 75 MG TABLET PO SCH (08:04)
[2022-02-12] MEDS: SERTRALINE HCL 50 MG TAB PO SCH (08:04)
[2022-02-12] MEDS: FUROSEMIDE 20 MG TABLET PO SCH (08:04)
[2022-02-12] MEDS: LIDOCAINE 4% PATCH TOP SCH (08:04)
[2022-02-12] MEDS: APIXABAN 2.5 MG TABLET PO SCH ×2 (08:04→20:29)
--- NOTE | 2022-02-12 15:53 | RAD REPORT ---
EXAM DESCRIPTION: RAD - Abdomen 1 View (KUB) - 02/12/2022 3:12 pm CLINICAL HISTORY: abdominal pain COMPARISON: No comparisons FINDINGS: Bowel gas pattern is non-specific. Air and stool are present filling but not dilating the colon. No small bowel dilatation. No free air or pneumatosis. No suspicious calcifications. Phleboli ths are present in the pelvis. No significant bony findings degenerative change present at the lumbosacral junction. IMPRESSION: Moderately prominent air and stool pattern in nondilated colon. No obstruction, free air or acute finding.
--- NOTE | 2022-02-12 18:15 | R.PN ---
PROGRESS NOTES ENCOUNTER DATE AND TIME: 02/12/2022 18:04 (CDT) NAME ALICIA CABRERA DATE OF : 1935 DATE OF ADMISSION: 02/10/2022 14:46 (CDT) CHFCHIEF COMPLAINT: CHF exacerbation and debility. SUBJECTIVE: Pt denied any depression. Pt denied any Shortness of Breath. WBC 8.1, Hgb 11.1, glucose 75 to 140, UA is essentially negative, covid-19 is negative. Ambulated 1500' with rolling walker and standby assistance. Up and down 16 steps with contact guard a ssistance. Self-propelled wheelchair 250' with standby assistance. VITAL SIGNS Temperature: 98.0 F SBP/DBP: 98/51 Pulse: 83 Resp: 15 MEDICATION ALLERGIES: No Known Drug Allergies (NKDA) ENVIRONMENTAL ALLERGIES: - Substance Allergies None Known - Other Allergies None Known NURSING: - Shower allowing shower PRECAUTIONS: - Fall Precaution SAFTY AND FALL ACTIVITIES OOB only with supervision THERAPIES: - Dietary and Nutrition Adequate Nutrition. Nutritional Education. Nutritional Supplements. Evaluate and Treat. - Occupational Therapy Cognitive Retraining. Patient needs Occupational Therapy for a daily minimum of 1.5 hours at least 5 out of 7 days, to improve Activities of Daily Living, including: Eating, Grooming, Bathing, Dressing, Toileting, Toilet Transfers, Community Reintegration, Higher functional activities, Adaptive Equipme nt, Splinting, Household Tasks, and Other activities as determined. Visual Perceptual Training. Evalu ate and Treat. Patient/Family Education. Safety Awareness. Transfer Training. ADL Training. Household Tasks. UE Strengthening. Adaptive Equipment. - Speech Therapy Cognitive Training. Expressive Language Skills. Memory Strategies. Patient needs Speech Therapy for a daily minimum of 1.5 hours at least 5 out of 7 days, to improve: Swallowing, Cognition, Language Ski lls, and Compensatory Strategies. Receptive Language Skills. Speech Intelligibility Training. Evaluat e and Treat. - Physical Therapy Patient needs Physical Therapy for a daily minimum of 1.5 hours at least 5 out of 7 days, to improve: Mobility, Strengthening, Transfers, Stretching, ROM, Endurance, Ability to manage stairs, Gait, and Balance. Mobility Training. Gait Training. Safety Awareness. Balance Training. Transfer Training. luate and Treat. Patient/Family Education. LE Strengthening. PHYSICAL EXAM - Gen Alert and awake Lying in bed No apparent distress Oriented to: person, time, and place - Skin No skin breakdown. Normacephalic - Eyes No abnormalities - ENMT No abnormalities - Neck No abnormalities - CVS RRR - Chest No abnormalities - Abd Obese, soft, nontender - GI + bowel sounds Deferred - No abnormalities - Ext Mild bilateral lower extremity edema. - MSK 4+/5 weakness in both lower extremities. - Neuro No focal deficits ASSESSMENT: Pt. is a 86 yo Right-handed male.On 02/04/2022 he was admitted to [facility] with diagnosis C HF.His impairment category is Cardiac 09 - Cardiac Disorders ().Pre-morbidly, Pt. was independent/ mod-I in Locomotion, Safety Awareness, Social Cognition, and Balance; and he had good Transfers Contr ol, Sphincter Control, Self-Care, Communication, and Endurance.Currently, he has deficits of Locomoti on, Safety Awareness, Social Cognition, Transfers Control, Balance, Sphincter Control, Self-Care, End urance, and Communication.Pt. is now referred to [facility] for acute in-patie nt rehabilitation in order to maximize patient's functional independence in activities of daily livin g, strength, ROM, and mobility.- Rehab Goal Patient has realistic goal of being discharged at assistance level 7-Ind to reside at Home with Pt s elf. MDM/PLAN: - Physical Therapy Gait dysfunction - to improve, our physical therapists will perform initial evaluation of pt's statu s upon admission and devise an individualized program for Gait Training, and Wheel Chair mobility Inability to transfer - to improve, our physical therapists will perform initial evaluation of pt's status upon admission and devise an individualized program for Bed mobility Need for home safety evaluation - to improve, our physical therapists will perform initial evaluatio n of pt's status upon admission and devise an individualized program for Home Evaluation Need in caregiver upon discharge - to improve, our physical therapists will perform initial evaluati on of pt's status upon admission and devise an individualized program for Caregiver Training New precaution - to improve, our physical therapists will perform initial evaluation of pt's status upon admission and devise an individualized program for Patient precaution education Edema - to improve, our physical therapists will perform initial evaluation of pt's status upon admis ariel and devise an individualized program for Elevation Training, and Lymphedema Therapy Poor balance - to improve, our physical therapists will perform initial evaluation of pt's status up on admission and devise an individualized program for Balance Training Poor endurance - to improve, our physical therapists will perform initial evaluation of pt's status upon admission and devise an individualized program for Endurance Training Weakness - to improve, our physical therapists will perform initial evaluation of pt's status upon a dmission and devise an individualized program for Aquatic Therapy, Neuromuscular Reeducation, and Str engthening Achieving independence - to improve, our physical therapists will perform initial evaluation of pt's status upon admission and devise an individualized program for Community Reintegration Activities - Occupational Therapy ADL deficits - to improve, our occupation therapists will perform initial evaluation of pt's status upon admission and devise an individualized program for Bathing, Bed mobility, Community Reintegratio n, Cooking, Dressing, Eating, Fine Motor Skills, Grooming, Homemaking, Kitchen Mobility, Laundry, Pat ient Education, Safety Awareness, Splinting - Positioning, Transfers(Toilet, Tub, Shower), and Wheel Chair Management Cognitive deficits - to improve, our occupation therapists will perform initial evaluation of pt's s tatus upon admission and devise an individualized program for Cognition - orientation Need for patient care provider - to improve, our occupation therapists will perform initial evaluation of pt's status upon admission and devise an individualized program for Caregiver Training Weakness - to improve, our occupation therapists will perform initial evaluation of pt's status upon admission and devise an individualized program for Aquatic Therapy, Balance, Endurance, UE ROM, and UE strengthening - Other See attached MAR (Medication Administration Record) - Diet Type Continue Regular - Diet - Liquid Texture Continue Regular - Tube Feed Continue N/A - Fall Precaution SAFTY AND FALL - Diet - Solid Texture Continue Regular - Shower allowing shower FUNCTIONAL STATUS: UPDATED AT WEEKLY TEAM CONFERENCE - Bladder Same accident frequency: 7-Ind - No accidents in the past 7 days - Bowel Same accident frequency: 7-Ind - No accidents in the past 7 days - Walking Same score based on distance walked: 0(N/A) Same score based on distance walked: 1(<=50ft) - Wheelchair Same score based on distance traveled: 0(N/A) FUNCTIONAL STATUS: - Self-Care A. Eating Ind B. Grooming Elena C. Bathing Elena D. Dressing - Upper sup E. Dressing - Lower Elena F. Toileting Elena - Sphincter Control G. Bladder control Mariela H. Bowel control Mariela - Transfers Control I. Bed/Chair/Wheelchair Elena J. Toilet sup K. Tub/Shower modA - Locomotion L. Walk/Wheelchair (B) sup M. Stairs Elena - Communication N. Comprehension (B) Mariela O. Expression (B) Mariela - Social Cognition P. Social Interaction Mariela Q. Problem Solving Mariela R. Memory Mariela - Endurance Good - Balance Good - Safety Awareness Good QI SCORES: - Self-Care A. Eating 03-Partial/moderate assistance B. Oral hygiene 03-Partial/moderate assistance C. Toileting hygiene 03-Partial/moderate assistance E. Shower/bathe self 03-Partial/moderate assistance F. Upper body dressing 03-Partial/moderate assistance G. Lower body dressing 03-Partial/moderate assistance H. Putting on/taking off footwear 88-Not attempted due to medical condition or safety concerns - Mobility A. Roll left and right 04-Supervision or touching assistance B. Sit to lying 03-Partial/moderate assistance C. Lying to sitting on side of bed 03-Partial/moderate assistance D. Sit to stand 03-Partial/moderate assistance E. Chair/wjs-[id number] transfer 03-Partial/moderate assistance F. Toilet transfer 03-Partial/moderate assistance G. Car transfer 88-Not attempted due to medical condition or safety concerns I. Walk 10 feet 03-Partial/moderate assistance J. Walk 50 feet with two turns 88-Not attempted due to medical condition or safety concerns K. Walk 150 feet 88-Not attempted due to medical condition or safety concerns L. Walking 10 feet on uneven surfaces 88-Not attempted due to medical condition or safety concerns M. 1 step (curb) 88-Not attempted due to medical condition or safety concerns N. 4 steps 88-Not attempted due to medical condition or safety concerns O. 12 steps 88-Not attempted due to medical condition or safety concerns P. Picking up object 88-Not attempted due to medical condition or safety concerns R. Wheel 50 feet with two turns S. Wheel 150 feet - Bladder and Bowel Bladder continence Bowel continence - Endurance Fair - Balance Fair - Safety Awareness Fair CURRENT FUNC. DEFICITS: Self-Care, Mobility, Endurance, Balance, and Safety Awareness SIGNATURE PANEL: (T)
[2022-02-12] MEDS: ATORVASTATIN 40 MG TAB PO SCH (20:29)
[2022-02-13] MEDS: INSULIN -REGULAR HUMAN 50 UNIT/0.5 ML ML SQ SCH ×4 (07:06→19:35)
[2022-02-13] MEDS: LINEZOLID 600 MG TAB PO SCH ×2 (07:29→19:34)
[2022-02-13] MEDS: PIOGLITAZONE 15 MG TAB PO SCH ×5 (07:30→19:34)
[2022-02-13] MEDS: LIDOCAINE 4% PATCH TOP SCH (07:30)
[2022-02-13] MEDS: AMIODARONE HCL 200 MG TAB PO SCH ×2 (07:30→07:31)
[2022-02-13] MEDS: glipiZIDE 5 MG TAB PO SCH (07:31)
[2022-02-13] MEDS: CLOPIDOGREL 75 MG TABLET PO SCH (07:31)
[2022-02-13] MEDS: FUROSEMIDE 20 MG TABLET PO SCH (07:31)
[2022-02-13] MEDS: APIXABAN 2.5 MG TABLET PO SCH ×2 (07:31→19:34)
[2022-02-13] MEDS: lisinopriL 10 MG TAB PO SCH (07:32)
[2022-02-13] MEDS: SERTRALINE HCL 50 MG TAB PO SCH (07:32)
--- NOTE | 2022-02-13 14:25 | RAD REPORT ---
EXAM DESCRIPTION: CT - Thorax Wo Con CLINICAL HISTORY: Chest pain R/O PE and C/O Right Posterior back pain COMPARISON: No comparisons FINDINGS: The lungs are moderately emphysematous with mild fibrotic changes in the lung bases. No pl eural thickening or pleural effusion. No pneumothorax. Pacer device is present. No axillary, mediastinal or hilar adenopathy. Thoracic degenerative changes are present. No gross upper abdominal finding. All CT scans are performed using dose optimization technique as appropriate and may include automated exposure control or mA/KV adjustment according to patient size. IMPRESSION: Moderate COPD.
--- NOTE | 2022-02-13 17:45 | R.PN ---
PROGRESS NOTES ENCOUNTER DATE AND TIME: 02/13/2022 17:41 (CDT) NAME ALICIA CABRERA DATE OF : 1935 DATE OF ADMISSION: 02/10/2022 14:46 (CDT) CHFCHIEF COMPLAINT: CHF exacerbation and debility. SUBJECTIVE: Pt denied any depression. Pt denied any Shortness of Breath. WBC 8.1, Hgb 11.1, glucose 73 to 89, UA is essentially negative, covid-19 is negative. Ambulated 1000' with rolling walker and standby assistance. Self-propelled wheelchair 1000' with sta ndby assistance. VITAL SIGNS Temperature: 97.0 F SBP/DBP: 98/55 Pulse: 66 Resp: 16 MEDICATION ALLERGIES: No Known Drug Allergies (NKDA) ENVIRONMENTAL ALLERGIES: - Substance Allergies None Known - Other Allergies None Known NURSING: - Shower allowing shower PRECAUTIONS: - Fall Precaution SAFTY AND FALL ACTIVITIES OOB only with supervision THERAPIES: - Dietary and Nutrition Adequate Nutrition. Nutritional Education. Nutritional Supplements. Evaluate and Treat. - Occupational Therapy Cognitive Retraining. Patient needs Occupational Therapy for a daily minimum of 1.5 hours at least 5 out of 7 days, to improve Activities of Daily Living, including: Eating, Grooming, Bathing, Dressing, Toileting, Toilet Transfers, Community Reintegration, Higher functional activities, Adaptive Equipme nt, Splinting, Household Tasks, and Other activities as determined. Visual Perceptual Training. Evalu ate and Treat. Patient/Family Education. Safety Awareness. Transfer Training. ADL Training. Household Tasks. UE Strengthening. Adaptive Equipment. - Speech Therapy Cognitive Training. Expressive Language Skills. Memory Strategies. Patient needs Speech Therapy for a daily minimum of 1.5 hours at least 5 out of 7 days, to improve: Swallowing, Cognition, Language Ski lls, and Compensatory Strategies. Receptive Language Skills. Speech Intelligibility Training. Evaluat e and Treat. - Physical Therapy Patient needs Physical Therapy for a daily minimum of 1.5 hours at least 5 out of 7 days, to improve: Mobility, Strengthening, Transfers, Stretching, ROM, Endurance, Ability to manage stairs, Gait, and Balance. Mobility Training. Gait Training. Safety Awareness. Balance Training. Transfer Training. luate and Treat. Patient/Family Education. LE Strengthening. PHYSICAL EXAM - Gen Alert and awake Lying in bed No apparent distress Oriented to: person, time, and place - Skin No skin breakdown. Normacephalic - Eyes No abnormalities - ENMT No abnormalities - Neck No abnormalities - CVS RRR - Chest No abnormalities - Abd Obese, soft, nontender - GI + bowel sounds Deferred - No abnormalities - Ext Mild bilateral lower extremity edema. - MSK 4+/5 weakness in both lower extremities. - Neuro No focal deficits ASSESSMENT: Pt. is a 86 yo Right-handed male.On 02/04/2022 he was admitted to [facility] with diagnosis C HF.His impairment category is Cardiac 09 - Cardiac Disorders ().Pre-morbidly, Pt. was independent/ mod-I in Locomotion, Safety Awareness, Social Cognition, and Balance; and he had good Transfers Contr ol, Sphincter Control, Self-Care, Communication, and Endurance.Currently, he has deficits of Locomoti on, Safety Awareness, Social Cognition, Transfers Control, Balance, Sphincter Control, Self-Care, End urance, and Communication.Pt. is now referred to [facility] for acute in-patie nt rehabilitation in order to maximize patient's functional independence in activities of daily livin g, strength, ROM, and mobility.- Rehab Goal Patient has realistic goal of being discharged at assistance level 7-Ind to reside at Home with Pt s elf. MDM/PLAN: - Physical Therapy Gait dysfunction - to improve, our physical therapists will perform initial evaluation of pt's statu s upon admission and devise an individualized program for Gait Training, and Wheel Chair mobility Inability to transfer - to improve, our physical therapists will perform initial evaluation of pt's status upon admission and devise an individualized program for Bed mobility Need for home safety evaluation - to improve, our physical therapists will perform initial evaluatio n of pt's status upon admission and devise an individualized program for Home Evaluation Need in caregiver upon discharge - to improve, our physical therapists will perform initial evaluati on of pt's status upon admission and devise an individualized program for Caregiver Training New precaution - to improve, our physical therapists will perform initial evaluation of pt's status upon admission and devise an individualized program for Patient precaution education Edema - to improve, our physical therapists will perform initial evaluation of pt's status upon admi ssion and devise an individualized program for Elevation Training, and Lymphedema Therapy Poor balance - to improve, our physical therapists will perform initial evaluation of pt's status up on admission and devise an individualized program for Balance Training Poor endurance - to improve, our physical therapists will perform initial evaluation of pt's status upon admission and devise an individualized program for Endurance Training Weakness - to improve, our physical therapists will perform initial evaluation of pt's status upon a dmission and devise an individualized program for Aquatic Therapy, Neuromuscular Reeducation, and Str engthening Achieving independence - to improve, our physical therapists will perform initial evaluation of pt's status upon admission and devise an individualized program for Community Reintegration Activities - Occupational Therapy ADL deficits - to improve, our occupation therapists will perform initial evaluation of pt's status upon admission and devise an individualized program for Bathing, Bed mobility, Community Reintegratio n, Cooking, Dressing, Eating, Fine Motor Skills, Grooming, Homemaking, Kitchen Mobility, Laundry, Pat ient Education, Safety Awareness, Splinting - Positioning, Transfers(Toilet, Tub, Shower), and Wheel Chair Management Cognitive deficits - to improve, our occupation therapists will perform initial evaluation of pt's s tatus upon admission and devise an individualized program for Cognition - orientation Need for home care giver - to improve, our occupation therapists will perform initial evaluation of pt's status upon admission and devise an individualized program for Caregiver Training Weakness - to improve, our occupation therapists will perform initial evaluation of pt's status upon admission and devise an individualized program for Aquatic Therapy, Balance, Endurance, UE ROM, and UE strengthening - Other See attached MAR (Medication Administration Record) - Diet Type Continue Regular - Diet - Liquid Texture Continue Regular - Tube Feed Continue N/A - Fall Precaution SAFTY AND FALL - Diet - Solid Texture Continue Regular - Shower allowing shower FUNCTIONAL STATUS: UPDATED AT WEEKLY TEAM CONFERENCE - Bladder Same accident frequency: 7-Ind - No accidents in the past 7 days - Bowel Same accident frequency: 7-Ind - No accidents in the past 7 days - Walking Same score based on distance walked: 0(N/A) Same score based on distance walked: 1(<=50ft) - Wheelchair Same score based on distance traveled: 0(N/A) FUNCTIONAL STATUS: - Self-Care A. Eating Ind B. Grooming Elena C. Bathing Elena D. Dressing - Upper sup E. Dressing - Lower Elena F. Toileting Elena - Sphincter Control G. Bladder control Mariela H. Bowel control Mariela - Transfers Control I. Bed/Chair/Wheelchair Elena J. Toilet sup K. Tub/Shower modA - Locomotion L. Walk/Wheelchair (B) sup M. Stairs Elena - Communication N. Comprehension (B) Mariela O. Expression (B) Mariela - Social Cognition P. Social Interaction Mariela Q. Problem Solving Mariela R. Memory Mariela - Endurance Good - Balance Good - Safety Awareness Good QI SCORES: - Self-Care A. Eating 03-Partial/moderate assistance B. Oral hygiene 03-Partial/moderate assistance C. Toileting hygiene 03-Partial/moderate assistance E. Shower/bathe self 03-Partial/moderate assistance F. Upper body dressing 03-Partial/moderate assistance G. Lower body dressing 03-Partial/moderate assistance H. Putting on/taking off footwear 88-Not attempted due to medical condition or safety concerns - Mobility A. Roll left and right 04-Supervision or touching assistance B. Sit to lying 03-Partial/moderate assistance C. Lying to sitting on side of bed 03-Partial/moderate assistance D. Sit to stand 03-Partial/moderate assistance E. Chair/cbb-wy-dpmgn transfer 03-Partial/moderate assistance F. Toilet transfer 03-Partial/moderate assistance G. Car transfer 88-Not attempted due to medical condition or safety concerns I. Walk 10 feet 03-Partial/moderate assistance J. Walk 50 feet with two turns 88-Not attempted due to medical condition or safety concerns K. Walk 150 feet 88-Not attempted due to medical condition or safety concerns L. Walking 10 feet on uneven surfaces 88-Not attempted due to medical condition or safety concerns M. 1 step (curb) 88-Not attempted due to medical condition or safety concerns N. 4 steps 88-Not attempted due to medical condition or safety concerns O. 12 steps 88-Not attempted due to medical condition or safety concerns P. Picking up object 88-Not attempted due to medical condition or safety concerns R. Wheel 50 feet with two turns S. Wheel 150 feet - Bladder and Bowel Bladder continence Bowel continence - Endurance Fair - Balance Fair - Safety Awareness Fair CURRENT FUNC. DEFICITS: Self-Care, Mobility, Endurance, Balance, and Safety Awareness SIGNATURE PANEL: (CDT)
[2022-02-13] MEDS: TRAMADOL HCL 50 MG TAB PO PRN (19:34)
[2022-02-13] MEDS: ATORVASTATIN 40 MG TAB PO SCH (19:34)
[2022-02-14] MEDS: INSULIN -REGULAR HUMAN 50 UNIT/0.5 ML ML SQ SCH ×4 (07:30→20:15)
[2022-02-14] MEDS: PIOGLITAZONE 15 MG TAB PO SCH ×5 (07:30→20:15)
[2022-02-14] MEDS: APIXABAN 2.5 MG TABLET PO SCH ×2 (07:40→20:15)
[2022-02-14] MEDS: FUROSEMIDE 20 MG TABLET PO SCH (07:40)
[2022-02-14] MEDS: CLOPIDOGREL 75 MG TABLET PO SCH (07:40)
[2022-02-14] MEDS: lisinopriL 10 MG TAB PO SCH ×2 (07:40→08:00)
[2022-02-14] MEDS: LIDOCAINE 4% PATCH TOP SCH (07:40)
[2022-02-14] MEDS: SERTRALINE HCL 50 MG TAB PO SCH (07:40)
[2022-02-14] MEDS: glipiZIDE 5 MG TAB PO SCH ×2 (07:41→08:00)
[2022-02-14] MEDS: LINEZOLID 600 MG TAB PO SCH ×2 (07:41→20:15)
[2022-02-14] MEDS: TRAMADOL HCL 50 MG TAB PO PRN ×2 (07:43→23:55)
--- NOTE | 2022-02-14 09:54 | RAD REPORT ---
EXAM DESCRIPTION: RAD - Chest Single View - 02/14/2022 9:43 am CLINICAL HISTORY: VQ SCAN COMPARISON: Abdomen 1 View (KUB) dated 02/12/2022 FINDINGS: Lines: ICD. Lungs: No evidence of edema or pneumonia. Pleural: No significant pleural effusions or pneumothorax. Cardiac: Cardiomegaly. Bones: No acute fractures. Soft tissue anchors in the humeral head. Other: IMPRESSION: No acute cardiopulmonary disease.
--- NOTE | 2022-02-14 10:02 | RAD REPORT ---
EXAM DESCRIPTION: NM - Vent Perfusion VQ Scan - 02/14/2022 9:30 am CLINICAL HISTORY: Chest pain COMPARISON: None. TECHNIQUE: The patient was administered approximately 20 mCi Xenon 133 gas with posterior projection inspiration, equilibrium, and washout views obtained. The patient was then administered approximatel y 7 mCi Tc-99m SC labeled RBCs followed by standard 8 view protocol. FINDINGS: There is good distribution of the Xenon with no ventilation defects identified. Air trappi ng is present. . Single segmental. few defect in the left upper lobe. No profusion defects are present within the righ t lung. IMPRESSION: Very low probability for pulmonary embolism by modified PIOPED II criteria.
--- NOTE | 2022-02-14 17:56 | R.PN ---
PROGRESS NOTES ENCOUNTER DATE AND TIME: 02/14/2022 17:53 (CDT) NAME ALICIA CABRERA DATE OF : 1935 DATE OF ADMISSION: 02/10/2022 14:46 (CDT) CHFCHIEF COMPLAINT: CHF exacerbation and debility. SUBJECTIVE: Pt denied any depression. Pt denied any Shortness of Breath. WBC 8.1, Hgb 11.1, glucose 72 to 141, UA is essentially negative, covid-19 is negative. Ambulated 1250' with rolling walker and standby assistance. Self-propelled wheelchair 250' with yakelin dby assistance. VITAL SIGNS Temperature: 97.4 F SBP/DBP: 118/60 Pulse: 80 Resp: 16 MEDICATION ALLERGIES: No Known Drug Allergies (NKDA) ENVIRONMENTAL ALLERGIES: - Substance Allergies None Known - Other Allergies None Known NURSING: - Shower allowing shower PRECAUTIONS: - Fall Precaution SAFTY AND FALL ACTIVITIES OOB only with supervision THERAPIES: - Dietary and Nutrition Adequate Nutrition. Nutritional Education. Nutritional Supplements. Evaluate and Treat. - Occupational Therapy Cognitive Retraining. Patient needs Occupational Therapy for a daily minimum of 1.5 hours at least 5 out of 7 days, to improve Activities of Daily Living, including: Eating, Grooming, Bathing, Dressing, Toileting, Toilet Transfers, Community Reintegration, Higher functional activities, Adaptive Equipme nt, Splinting, Household Tasks, and Other activities as determined. Visual Perceptual Training. Evalu ate and Treat. Patient/Family Education. Safety Awareness. Transfer Training. ADL Training. Household Tasks. UE Strengthening. Adaptive Equipment. - Speech Therapy Cognitive Training. Expressive Language Skills. Memory Strategies. Patient needs Speech Therapy for a daily minimum of 1.5 hours at least 5 out of 7 days, to improve: Swallowing, Cognition, Language Ski lls, and Compensatory Strategies. Receptive Language Skills. Speech Intelligibility Training. Evaluat e and Treat. - Physical Therapy Patient needs Physical Therapy for a daily minimum of 1.5 hours at least 5 out of 7 days, to improve: Mobility, Strengthening, Transfers, Stretching, ROM, Endurance, Ability to manage stairs, Gait, and Balance. Mobility Training. Gait Training. Safety Awareness. Balance Training. Transfer Training. luate and Treat. Patient/Family Education. LE Strengthening. PHYSICAL EXAM - Gen Alert and awake Lying in bed No apparent distress Oriented to: person, time, and place - Skin No skin breakdown. Normacephalic - Eyes No abnormalities - ENMT No abnormalities - Neck No abnormalities - CVS RRR - Chest No abnormalities - Abd Obese, soft, nontender - GI + bowel sounds Deferred - No abnormalities - Ext Mild bilateral lower extremity edema. - MSK 4+/5 weakness in both lower extremities. - Neuro No focal deficits ASSESSMENT: Pt. is a 86 yo Right-handed male.On 02/04/2022 he was admitted to [facility] with diagnosis C HF.His impairment category is Cardiac 09 - Cardiac Disorders ().Pre-morbidly, Pt. was independent/ mod-I in Locomotion, Safety Awareness, Social Cognition, and Balance; and he had good Transfers Contr ol, Sphincter Control, Self-Care, Communication, and Endurance.Currently, he has deficits of Locomoti on, Safety Awareness, Social Cognition, Transfers Control, Balance, Sphincter Control, Self-Care, End urance, and Communication.Pt. is now referred to [facility] for acute in-patie nt rehabilitation in order to maximize patient's functional independence in activities of daily livin g, strength, ROM, and mobility.- Rehab Goal Patient has realistic goal of being discharged at assistance level 7-Ind to reside at Home with Pt s elf. MDM/PLAN: - Physical Therapy Gait dysfunction - to improve, our physical therapists will perform initial evaluation of pt's statu s upon admission and devise an individualized program for Gait Training, and Wheel Chair mobility Inability to transfer - to improve, our physical therapists will perform initial evaluation of pt's status upon admission and devise an individualized program for Bed mobility Need for home safety evaluation - to improve, our physical therapists will perform initial evaluatio n of pt's status upon admission and devise an individualized program for Home Evaluation Need in caregiver upon discharge - to improve, our physical therapists will perform initial evaluati on of pt's status upon admission and devise an individualized program for Caregiver Training New precaution - to improve, our physical therapists will perform initial evaluation of pt's status upon admission and devise an individualized program for Patient precaution education Edema - to improve, our physical therapists will perform initial evaluation of pt's status upon admi ssion and devise an individualized program for Elevation Training, and Lymphedema Therapy Poor balance - to improve, our physical therapists will perform initial evaluation of pt's status up on admission and devise an individualized program for Balance Training Poor endurance - to improve, our physical therapists will perform initial evaluation of pt's status upon admission and devise an individualized program for Endurance Training Weakness - to improve, our physical therapists will perform initial evaluation of pt's status upon a dmission and devise an individualized program for Aquatic Therapy, Neuromuscular Reeducation, and Str engthening Achieving independence - to improve, our physical therapists will perform initial evaluation of pt's status upon admission and devise an individualized program for Community Reintegration Activities - Occupational Therapy ADL deficits - to improve, our occupation therapists will perform initial evaluation of pt's status upon admission and devise an individualized program for Bathing, Bed mobility, Community Reintegratio n, Cooking, Dressing, Eating, Fine Motor Skills, Grooming, Homemaking, Kitchen Mobility, Laundry, Pat ient Education, Safety Awareness, Splinting - Positioning, Transfers(Toilet, Tub, Shower), and Wheel Chair Management Cognitive deficits - to improve, our occupation therapists will perform initial evaluation of pt's s tatus upon admission and devise an individualized program for Cognition - orientation Need for foster care case manager - to improve, our occupation therapists will perform initial evaluation of pt's status upon admission and devise an individualized program for Caregiver Training Weakness - to improve, our occupation therapists will perform initial evaluation of pt's status upon admission and devise an individualized program for Aquatic Therapy, Balance, Endurance, UE ROM, and UE strengthening - Other See attached MAR (Medication Administration Record) - Diet Type Continue Regular - Diet - Liquid Texture Continue Regular - Tube Feed Continue N/A - Fall Precaution SAFTY AND FALL - Diet - Solid Texture Continue Regular - Shower allowing shower FUNCTIONAL STATUS: UPDATED AT WEEKLY TEAM CONFERENCE - Bladder Same accident frequency: 7-Ind - No accidents in the past 7 days - Bowel Same accident frequency: 7-Ind - No accidents in the past 7 days - Walking Same score based on distance walked: 0(N/A) Same score based on distance walked: 1(<=50ft) - Wheelchair Same score based on distance traveled: 0(N/A) FUNCTIONAL STATUS: - Self-Care A. Eating Ind B. Grooming Elena C. Bathing lEena D. Dressing - Upper sup E. Dressing - Lower Elena F. Toileting Elena - Sphincter Control G. Bladder control Mariela H. Bowel control Mariela - Transfers Control I. Bed/Chair/Wheelchair Elena J. Toilet sup K. Tub/Shower modA - Locomotion L. Walk/Wheelchair (B) sup M. Stairs Elena - Communication N. Comprehension (B) Mariela O. Expression (B) Mariela - Social Cognition P. Social Interaction Mariela Q. Problem Solving Mariela R. Memory Mariela - Endurance Good - Balance Good - Safety Awareness Good QI SCORES: - Self-Care A. Eating 03-Partial/moderate assistance B. Oral hygiene 03-Partial/moderate assistance C. Toileting hygiene 03-Partial/moderate assistance E. Shower/bathe self 03-Partial/moderate assistance F. Upper body dressing 03-Partial/moderate assistance G. Lower body dressing 03-Partial/moderate assistance H. Putting on/taking off footwear 88-Not attempted due to medical condition or safety concerns - Mobility A. Roll left and right 04-Supervision or touching assistance B. Sit to lying 03-Partial/moderate assistance C. Lying to sitting on side of bed 03-Partial/moderate assistance D. Sit to stand 03-Partial/moderate assistance E. Chair/bjo-yd-qpolz transfer 03-Partial/moderate assistance F. Toilet transfer 03-Partial/moderate assistance G. Car transfer 88-Not attempted due to medical condition or safety concerns I. Walk 10 feet 03-Partial/moderate assistance J. Walk 50 feet with two turns 88-Not attempted due to medical condition or safety concerns K. Walk 150 feet 88-Not attempted due to medical condition or safety concerns L. Walking 10 feet on uneven surfaces 88-Not attempted due to medical condition or safety concerns M. 1 step (curb) 88-Not attempted due to medical condition or safety concerns N. 4 steps 88-Not attempted due to medical condition or safety concerns O. 12 steps 88-Not attempted due to medical condition or safety concerns P. Picking up object 88-Not attempted due to medical condition or safety concerns R. Wheel 50 feet with two turns S. Wheel 150 feet - Bladder and Bowel Bladder continence Bowel continence - Endurance Fair - Balance Fair - Safety Awareness Fair CURRENT FUNC. DEFICITS: Self-Care, Mobility, Endurance, Balance, and Safety Awareness SIGNATURE PANEL: (CDT)
[2022-02-14] MEDS: CRANBERRY FRUIT EXTRACT 400 MG CAP PO SCH (20:15)
[2022-02-14] MEDS: ATORVASTATIN 40 MG TAB PO SCH (20:15)
[2022-02-15 04:46] LABS: Absolute Lymphocytes (CBC) 1.1 K/uL (0.7-4.9); Hematocrit 31.8 % (39.6-49.0); Lymphocytes % 18.1 % (15.3-44.8); MPV 7.9 fL (7.6-11.3)
[2022-02-15 05:14] LABS: Albumin 2.7 g/dL (3.4-5.0); Magnesium 1.9 mg/dL (1.8-2.4); Potassium 4.3 mmol/L (3.5-5.1)
[2022-02-15] MEDS: INSULIN -REGULAR HUMAN 50 UNIT/0.5 ML ML SQ SCH ×4 (07:30→21:00)
[2022-02-15] MEDS: LIDOCAINE 4% PATCH TOP SCH ×2 (07:43→08:00)
[2022-02-15] MEDS: LINEZOLID 600 MG TAB PO SCH ×2 (07:44→19:31)
[2022-02-15] MEDS: SERTRALINE HCL 50 MG TAB PO SCH (07:45)
[2022-02-15] MEDS: CLOPIDOGREL 75 MG TABLET PO SCH (07:45)
[2022-02-15] MEDS: PIOGLITAZONE 15 MG TAB PO SCH ×4 (07:45→19:31)
[2022-02-15] MEDS: FUROSEMIDE 20 MG TABLET PO SCH (07:45)
[2022-02-15] MEDS: lisinopriL 10 MG TAB PO SCH (07:46)
[2022-02-15] MEDS: CRANBERRY FRUIT EXTRACT 400 MG CAP PO SCH ×2 (07:46→19:31)
[2022-02-15] MEDS: AMIODARONE HCL 200 MG TAB PO SCH (07:46)
[2022-02-15] MEDS: APIXABAN 2.5 MG TABLET PO SCH ×2 (07:46→19:31)
[2022-02-15] MEDS: TRAMADOL HCL 50 MG TAB PO PRN ×4 (07:52→21:42)
[2022-02-15] MEDS: glipiZIDE 5 MG TAB PO SCH (09:41)
[2022-02-15 16:23] LABS: Prealbumin 17.2 mg/dL (20-40)
--- NOTE | 2022-02-15 18:12 | R.PN ---
PROGRESS NOTES ENCOUNTER DATE AND TIME: 02/15/2022 18:08 (CDT) NAME ALICIA CABRERA DATE OF : 1935 DATE OF ADMISSION: 02/10/2022 14:46 (CDT) CHFCHIEF COMPLAINT: CHF exacerbation and debility. SUBJECTIVE: Pt denied any depression. Pt denied any Shortness of Breath. WBC 6.1, Hgb 10.6, glucose 81 to 135, prealbumin 17.2, UA is essentially negative, covid-19 is negati ve. Ambulated 750' with rolling walker and standby assistance. Self-propelled wheelchair 250' with stand by assistance. VITAL SIGNS Temperature: 97.6 F SBP/DBP: 109/67 Pulse: 65 Resp: 15 MEDICATION ALLERGIES: No Known Drug Allergies (NKDA) ENVIRONMENTAL ALLERGIES: - Substance Allergies None Known - Other Allergies None Known NURSING: - Shower allowing shower PRECAUTIONS: - Fall Precaution SAFTY AND FALL ACTIVITIES OOB only with supervision THERAPIES: - Dietary and Nutrition Adequate Nutrition. Nutritional Education. Nutritional Supplements. Evaluate and Treat. - Occupational Therapy Cognitive Retraining. Patient needs Occupational Therapy for a daily minimum of 1.5 hours at least 5 out of 7 days, to improve Activities of Daily Living, including: Eating, Grooming, Bathing, Dressing, Toileting, Toilet Transfers, Community Reintegration, Higher functional activities, Adaptive Equipme nt, Splinting, Household Tasks, and Other activities as determined. Visual Perceptual Training. Evalu ate and Treat. Patient/Family Education. Safety Awareness. Transfer Training. ADL Training. Household Tasks. UE Strengthening. Adaptive Equipment. - Speech Therapy Cognitive Training. Expressive Language Skills. Memory Strategies. Patient needs Speech Therapy for a daily minimum of 1.5 hours at least 5 out of 7 days, to improve: Swallowing, Cognition, Language Ski lls, and Compensatory Strategies. Receptive Language Skills. Speech Intelligibility Training. Evaluat e and Treat. - Physical Therapy Patient needs Physical Therapy for a daily minimum of 1.5 hours at least 5 out of 7 days, to improve: Mobility, Strengthening, Transfers, Stretching, ROM, Endurance, Ability to manage stairs, Gait, and Balance. Mobility Training. Gait Training. Safety Awareness. Balance Training. Transfer Training. luate and Treat. Patient/Family Education. LE Strengthening. PHYSICAL EXAM - Gen Alert and awake Lying in bed No apparent distress Oriented to: person, time, and place - Skin No skin breakdown. Normacephalic - Eyes No abnormalities - ENMT No abnormalities - Neck No abnormalities - CVS RRR - Chest No abnormalities - Abd Obese, soft, nontender - GI + bowel sounds Deferred - No abnormalities - Ext Mild bilateral lower extremity edema. - MSK 4+/5 weakness in both lower extremities. - Neuro No focal deficits ASSESSMENT: Pt. is a 86 yo Right-handed male.On 02/04/2022 he was admitted to [facility] with diagnosis C HF.His impairment category is Cardiac 09 - Cardiac Disorders ().Pre-morbidly, Pt. was independent/ mod-I in Locomotion, Safety Awareness, Social Cognition, and Balance; and he had good Transfers Contr ol, Sphincter Control, Self-Care, Communication, and Endurance.Currently, he has deficits of Locomoti on, Safety Awareness, Social Cognition, Transfers Control, Balance, Sphincter Control, Self-Care, End urance, and Communication.Pt. is now referred to [facility] for acute in-patie nt rehabilitation in order to maximize patient's functional independence in activities of daily livin g, strength, ROM, and mobility.- Rehab Goal Patient has realistic goal of being discharged at assistance level 7-Ind to reside at Home with Pt s elf. MDM/PLAN: - Physical Therapy Gait dysfunction - to improve, our physical therapists will perform initial evaluation of pt's statu s upon admission and devise an individualized program for Gait Training, and Wheel Chair mobility Inability to transfer - to improve, our physical therapists will perform initial evaluation of pt's status upon admission and devise an individualized program for Bed mobility Need for home safety evaluation - to improve, our physical therapists will perform initial evaluatio n of pt's status upon admission and devise an individualized program for Home Evaluation Need in caregiver upon discharge - to improve, our physical therapists will perform initial evaluati on of pt's status upon admission and devise an individualized program for Caregiver Training New precaution - to improve, our physical therapists will perform initial evaluation of pt's status upon admission and devise an individualized program for Patient precaution education Edema - to improve, our physical therapists will perform initial evaluation of pt's status upon admi ssion and devise an individualized program for Elevation Training, and Lymphedema Therapy Poor balance - to improve, our physical therapists will perform initial evaluation of pt's status up on admission and devise an individualized program for Balance Training Poor endurance - to improve, our physical therapists will perform initial evaluation of pt's status upon admission and devise an individualized program for Endurance Training Weakness - to improve, our physical therapists will perform initial evaluation of pt's status upon a dmission and devise an individualized program for Aquatic Therapy, Neuromuscular Reeducation, and Str engthening Achieving independence - to improve, our physical therapists will perform initial evaluation of pt's status upon admission and devise an individualized program for Community Reintegration Activities - Occupational Therapy ADL deficits - to improve, our occupation therapists will perform initial evaluation of pt's status upon admission and devise an individualized program for Bathing, Bed mobility, Community Reintegratio n, Cooking, Dressing, Eating, Fine Motor Skills, Grooming, Homemaking, Kitchen Mobility, Laundry, Pat ient Education, Safety Awareness, Splinting - Positioning, Transfers(Toilet, Tub, Shower), and Wheel Chair Management Cognitive deficits - to improve, our occupation therapists will perform initial evaluation of pt's s tatus upon admission and devise an individualized program for Cognition - orientation Need for palliative care physician - to improve, our occupation therapists will perform initial evaluation of pt's status upon admission and devise an individualized program for Caregiver Training Weakness - to improve, our occupation therapists will perform initial evaluation of pt's status upon admission and devise an individualized program for Aquatic Therapy, Balance, Endurance, UE ROM, and UE strengthening - Other See attached MAR (Medication Administration Record) - Diet Type Continue Regular - Diet - Liquid Texture Continue Regular - Tube Feed Continue N/A - Fall Precaution SAFTY AND FALL - Diet - Solid Texture Continue Regular - Shower allowing shower FUNCTIONAL STATUS: UPDATED AT WEEKLY TEAM CONFERENCE - Bladder Same accident frequency: 7-Ind - No accidents in the past 7 days - Bowel Same accident frequency: 7-Ind - No accidents in the past 7 days - Walking Same score based on distance walked: 0(N/A) Same score based on distance walked: 1(<=50ft) - Wheelchair Same score based on distance traveled: 0(N/A) FUNCTIONAL STATUS: - Self-Care A. Eating Ind B. Grooming Elena C. Bathing Elena D. Dressing - Upper sup E. Dressing - Lower Elena F. Toileting Elena - Sphincter Control G. Bladder control Mariela H. Bowel control Mariela - Transfers Control I. Bed/Chair/Wheelchair Elena J. Toilet sup K. Tub/Shower modA - Locomotion L. Walk/Wheelchair (B) sup M. Stairs Elena - Communication N. Comprehension (B) Mariela O. Expression (B) Mariela - Social Cognition P. Social Interaction Mariela Q. Problem Solving Mariela R. Memory Mariela - Endurance Good - Balance Good - Safety Awareness Good QI SCORES: - Self-Care A. Eating 03-Partial/moderate assistance B. Oral hygiene 03-Partial/moderate assistance C. Toileting hygiene 03-Partial/moderate assistance E. Shower/bathe self 03-Partial/moderate assistance F. Upper body dressing 03-Partial/moderate assistance G. Lower body dressing 03-Partial/moderate assistance H. Putting on/taking off footwear 88-Not attempted due to medical condition or safety concerns - Mobility A. Roll left and right 04-Supervision or touching assistance B. Sit to lying 03-Partial/moderate assistance C. Lying to sitting on side of bed 03-Partial/moderate assistance D. Sit to stand 03-Partial/moderate assistance E. Chair/[id number] transfer 03-Partial/moderate assistance F. Toilet transfer 03-Partial/moderate assistance G. Car transfer 88-Not attempted due to medical condition or safety concerns I. Walk 10 feet 03-Partial/moderate assistance J. Walk 50 feet with two turns 88-Not attempted due to medical condition or safety concerns K. Walk 150 feet 88-Not attempted due to medical condition or safety concerns L. Walking 10 feet on uneven surfaces 88-Not attempted due to medical condition or safety concerns M. 1 step (curb) 88-Not attempted due to medical condition or safety concerns N. 4 steps 88-Not attempted due to medical condition or safety concerns O. 12 steps 88-Not attempted due to medical condition or safety concerns P. Picking up object 88-Not attempted due to medical condition or safety concerns R. Wheel 50 feet with two turns S. Wheel 150 feet - Bladder and Bowel Bladder continence Bowel continence - Endurance Fair - Balance Fair - Safety Awareness Fair CURRENT FUNC. DEFICITS: Self-Care, Mobility, Endurance, Balance, and Safety Awareness SIGNATURE PANEL: ([facility])
[2022-02-15] MEDS: ATORVASTATIN 40 MG TAB PO SCH (19:31)
[2022-02-16] MEDS: TRAMADOL HCL 50 MG TAB PO PRN (01:29)
[2022-02-16] MEDS: INSULIN -REGULAR HUMAN 50 UNIT/0.5 ML ML SQ SCH ×4 (07:14→21:00)
[2022-02-16] MEDS: LINEZOLID 600 MG TAB PO SCH ×2 (07:54→21:09)
[2022-02-16] MEDS: FUROSEMIDE 20 MG TABLET PO SCH (07:54)
[2022-02-16] MEDS: PIOGLITAZONE 15 MG TAB PO SCH ×4 (07:54→21:00)
[2022-02-16] MEDS: LIDOCAINE 4% PATCH TOP SCH ×2 (08:00→08:01)
[2022-02-16] MEDS: lisinopriL 10 MG TAB PO SCH (08:00)
[2022-02-16] MEDS: CRANBERRY FRUIT EXTRACT 400 MG CAP PO SCH ×2 (08:01→21:07)
[2022-02-16] MEDS: SERTRALINE HCL 50 MG TAB PO SCH (08:01)
[2022-02-16] MEDS: glipiZIDE 5 MG TAB PO SCH (08:01)
[2022-02-16] MEDS: AMIODARONE HCL 200 MG TAB PO SCH (08:02)
[2022-02-16] MEDS: APIXABAN 2.5 MG TABLET PO SCH ×2 (08:02→21:07)
[2022-02-16] MEDS: CLOPIDOGREL 75 MG TABLET PO SCH (08:02)
--- NOTE | 2022-02-16 10:07 | P.RH.PN ---
Estimated Length of Stay: 9 Expected Discharge Date: 02/18/22 Discharge Disposition Plan: Home Family Support: Yes Commodity Supervisor Goal: Mobility, Transfers, Self Care Vital Signs: Last Vital Signs Temp 97.4 F 02/16/22 07:15 Pulse 74 02/16/22 08:00 Resp 16 02/16/22 07:15 BP 108/63 02/16/22 08:00 Pulse Ox 97 02/16/22 07:15 Laboratory: Laboratory Last Values WBC 6.1 K/uL (4.3-10.9) D 02/15/22 04:24 RBC 3.80 M/uL (4.33-5.43) L 02/15/22 04:24 Hgb 10.6 g/dL (13.6-17.9) L 02/15/22 04:24 Hct 31.8 % (39.6-49.0) L 02/15/22 04:24 MCV 83.7 fL (80-100) 02/15/22 04:24 MCH 27.8 pg (27.0-35.0) 02/15/22 04:24 MCHC 33.2 g/dL (32.0-36.0) 02/15/22 04:24 RDW 17.0 % (12.1-15.2) H 02/15/22 04:24 Plt Count 302 K/uL (152-406) 02/15/22 04:24 MPV 7.9 fL (7.6-11.3) 02/15/22 04:24 Neutrophils % 67.1 % (41.7-73.7) 02/15/22 04:24 Lymphocytes % 18.1 % (15.3-44.8) 02/15/22 04:24 Monocytes % 8.8 % (3.3-12.3) 02/15/22 04:24 Eosinophils % 5.3 % (0-4.4) H 02/15/22 04:24 Basophils % 0.7 % (0-1.3) 02/15/22 04:24 Absolute Neutrophils 4.1 K/uL (1.8-8.0) 02/15/22 04:24 Absolute Lymphocytes 1.1 K/uL (0.7-4.9) 02/15/22 04:24 Absolute Monocytes 0.5 K/uL (0.1-1.3) 02/15/22 04:24 Absolute Eosinophils 0.3 K/uL (0-0.5) 02/15/22 04:24 Absolute Basophils 0.0 K/uL (0-0.5) 02/15/22 04:24 Sodium 135 mmol/L (136-145) L 02/15/22 04:24 Potassium 4.3 mmol/L (3.5-5.1) 02/15/22 04:24 Chloride 100 mmol/L (98-107) 02/15/22 04:24 Carbon Dioxide 29 mmol/L (21-32) 02/15/22 04:24 BUN 33 mg/dL (7-18) H 02/15/22 04:24 Creatinine 1.72 mg/dL (0.55-1.3) H 02/15/22 04:24 Estimated GFR 38 mL/min (=/>90) L 02/15/22 04:24 Glucose 104 mg/dL (74-106) 02/15/22 04:24 POC Glucose 91 mg/dL (65-120) 02/16/22 07:01 Calcium 8.4 mg/dL (8.5-10.1) L 02/15/22 04:24 Magnesium 1.9 mg/dL (1.8-2.4) 02/15/22 04:24 Albumin 2.7 g/dL (3.4-5.0) L 02/15/22 04:24 Prealbumin 17.2 mg/dL (20-40) L 02/15/22 04:24 Urine Color Yellow (Yellow) 02/09/22 21:59 Urine Appearance Clear (Clear) 02/09/22 21:59 Urine pH 5.5 (5.0-7.0) 02/09/22 21:59 Ur Specific [place] 1.020 (1.005-1.030) 02/09/22 21:59 Glucose (UA)(Auto) Negative (Negative) 02/09/22 21:59 Urine Ketones Trace (Negative) H 02/09/22 21:59 Urine Blood 2+ (Negative) H 02/09/22 21:59 Urine Nitrite Negative (Negative) 02/09/22 21:59 Urine Bilirubin Negative (Negative) 02/09/22 21:59 Urine Urobilinogen 0.2 mg/dL (0.2-1.0) 02/09/22 21:59 Ur Leukocyte Esterase Negative (Negative) 02/09/22 21:59 Urine RBC 20-50 /HPF (NONE SEEN) H 02/09/22 21:59 Urine WBC <5 /HPF (<5) 02/09/22 21:59 Ur Squamous Epith Cells <5 /HPF (NONE SEEN) 02/09/22 21:59 Ur Urothelial Cells Cancelled 02/09/22 21:43 Calcium Oxalate Crystal Cancelled 02/09/22 21:43 Uric Acid Crystals Cancelled 02/09/22 21:43 Triple Phos Crystals Cancelled 02/09/22 21:43 Other Crystals Cancelled 02/09/22 21:43 Amorphous Sediment Cancelled 02/09/22 21:43 Glitter Cells Cancelled 02/09/22 21:43 Urine Bacteria <20 /HPF (NONE SEEN) 02/09/22 21:59 Hyaline Casts Cancelled 02/09/22 21:43 Fine Granular Casts Cancelled 02/09/22 21:43 Coarse Granular Casts Cancelled 02/09/22 21:43 Waxy Casts Cancelled 02/09/22 21:43 RBC Casts Cancelled 02/09/22 21:43 WBC Casts Cancelled 02/09/22 21:43 Urine Mucus Cancelled 02/09/22 21:43 Urine Other Cancelled 02/09/22 21:43 Urine Trichomonas Cancelled 02/09/22 21:43 Urine Yeast Cancelled 02/09/22 21:43 Ur Yeast w Hyphae Cancelled 02/09/22 21:43 Urine Yeast (Budding) Cancelled 02/09/22 21:43 Urine Sperm Cancelled 02/09/22 21:43 Urine Culture Reflexed Not needed 02/09/22 21:59 Urine Total Volume Cancelled 02/09/22 21:43 Urine Total Protein 1+ (Negative) H 02/09/22 21:59 SARS-CoV-2 Rap RNA(RT-PCR) Negative (NEGATIVE) 02/16/22 05:40 Weight: 181 lb Wound Present: Yes Closed Surgical Incision Present: No Negative Pressure Wound Therapy Present: No Physician Update: SBA bed mobility, 500' with SBA using the walker, WC is 250' with SBA. Labs reviewed and are stable. Functional Improvement: Pt. presents w/ good attitude and work ethic toward therapy. 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 Summary: Patient's care plan and long-term goals have been reviewed and revised as necessary. Please see the Rehabilitation Signature page for all necessary signatures.
[2022-02-16] MEDS ORDERED: ONDANSETRON 4 MG/2 ML VIAL IV PRN (14:52)
[2022-02-16] MEDS ORDERED: D10W 250 ML IV ONE (16:26)
[2022-02-16] MEDS: D10W 125 ML IV PRN (16:29)
[2022-02-16] MEDS: ATORVASTATIN 40 MG TAB PO SCH (21:07)
[2022-02-17] MEDS ORDERED: D10W 250 ML IV ONE (03:21)
[2022-02-17] MEDS: D10W 125 ML IV PRN (03:24)
[2022-02-17 05:30] VITALS: BMI 25.5
[2022-02-17] MEDS: PANTOPRAZOLE 40MG TABLET PO SCH (05:34)
[2022-02-17] MEDS: PIOGLITAZONE 15 MG TAB PO SCH ×4 (07:30→19:16)
[2022-02-17] MEDS: INSULIN -REGULAR HUMAN 50 UNIT/0.5 ML ML SQ SCH ×4 (07:30→19:17)
[2022-02-17] MEDS: glipiZIDE 5 MG TAB PO SCH (08:00)
[2022-02-17] MEDS: CRANBERRY FRUIT EXTRACT 400 MG CAP PO SCH ×2 (10:17→19:16)
[2022-02-17] MEDS: FUROSEMIDE 20 MG TABLET PO SCH (10:17)
[2022-02-17] MEDS: LINEZOLID 600 MG TAB PO SCH ×2 (10:17→19:16)
[2022-02-17] MEDS: APIXABAN 2.5 MG TABLET PO SCH ×2 (10:17→19:16)
[2022-02-17] MEDS: AMIODARONE HCL 200 MG TAB PO SCH (10:17)
[2022-02-17] MEDS: LIDOCAINE 4% PATCH TOP SCH (10:18)
[2022-02-17] MEDS: CLOPIDOGREL 75 MG TABLET PO SCH (10:18)
[2022-02-17] MEDS: SERTRALINE HCL 50 MG TAB PO SCH (10:21)
[2022-02-17] MEDS: lisinopriL 10 MG TAB PO SCH (10:21)
[2022-02-17] MEDS: ATORVASTATIN 40 MG TAB PO SCH (19:16)
[2022-02-18] MEDS: PANTOPRAZOLE 40MG TABLET PO SCH (05:14)
[2022-02-18] MEDS: INSULIN -REGULAR HUMAN 50 UNIT/0.5 ML ML SQ SCH ×2 (07:30→11:25)
[2022-02-18 07:43] VITALS: BP 119/60; TEMP 97.6
[2022-02-18] MEDS: AMIODARONE HCL 200 MG TAB PO SCH (08:00)
[2022-02-18] MEDS: LINEZOLID 600 MG TAB PO SCH (08:53)
[2022-02-18] MEDS: CLOPIDOGREL 75 MG TABLET PO SCH (08:54)
[2022-02-18] MEDS: glipiZIDE 5 MG TAB PO SCH (08:54)
[2022-02-18] MEDS: APIXABAN 2.5 MG TABLET PO SCH (08:54)
[2022-02-18] MEDS: CRANBERRY FRUIT EXTRACT 400 MG CAP PO SCH (08:54)
[2022-02-18] MEDS: SERTRALINE HCL 50 MG TAB PO SCH (08:54)
[2022-02-18] MEDS: FUROSEMIDE 20 MG TABLET PO SCH (08:55)
[2022-02-18] MEDS: LIDOCAINE 4% PATCH TOP SCH (08:55)
[2022-02-18] MEDS: lisinopriL 10 MG TAB PO SCH (08:55)
[2022-02-19] MEDS ORDERED: PIOGLITAZONE 15 MG TAB PO SCH (07:30)
--- NOTE | 2022-02-23 19:22 | PAPE ---
POST ADMISSION PHYSICIAN EVALUATION PATIENT: [facility] MR# [id number] REFERRING DOCTOR EVALUATION DATE AND TIME 02/10/2022 14:51 (CDT) NAME ALICIA CABRERA DATE OF 1935 AGE 86 PHONE ( SSN# [id number] GENDER male EVALUATING PHYSICIAN Dr. Dalton Helms M.D. ADMISSION DIAGNOSIS: CHF ONSET DATE 02/04/2022 POST-ADMISSION FUNCTIONAL/MEDICAL STATUS: - Bladder Same accident frequency: 7-Ind - No accidents in the past 7 days - Bowel Same accident frequency: 7-Ind - No accidents in the past 7 days - Walking Same score based on distance walked: 0(N/A) Same score based on distance walked: 1(<=50ft) - Wheelchair Same score based on distance traveled: 0(N/A) STATUS CHANGE EVALUATION: No change in Functional or Medical Status is identified compared with Pre-Admission screening. PATIENT NEEDS CLOSE MEDICAL SUPERVISION BY A REHABILITATION PHYSICIAN FOR: Coordination of Treatment Team Wound Care Medical and Co-Morbidity Management DVT Management Pain Management PATIENT REQUIRES 24X7 REHAB NURSING FOR MEDICAL AND FUNCTIONAL MGT. OF THE FOLLOWING DEFICITS: Disease Management Medication Management Patient requires 24x7 Rehabilitation Nursing for: Pain Issues, Identifying and preventing risk factor s, Monitoring and reporting current medical conditions, Assisting with ambulation and transfer, Isidro ting with all ADL-s, Teaching patients about disease process and medications, Family teaching, Provid ing safe environment, Bowel and Bladder Issues, Skin Integrity, and Medication Management Patient/Family Education Providing Safe Environment Skin Integrity Bowel and Bladder Management Pain Management PATIENT REQUIRES INTENSIVE, COORDINATED INTERDISCIPLINARY APPROACH TO REHAB: Arranging Home Equipment/Services Discharge Planning Family Intervention/Training Patient needs Dietary and Nutrition Services for: Adequate Nutrition, Nutritional Supplements, and Nu tritional Education Patient needs Quality Assurance Calibrator and/or Case Management for: Discharge Planning, Arranging Home Equipmen t or Services, and Family Interventions Quality Assurance Calibrator/Case Management LIST OF IDENTIFIED AND POTENTIAL PROBLEMS: Alteration in leisure activities Bladder, Incontinence Bowel, Incontinence Infection, Actual or Potential Mobility Impaired Pain, Alteration in Comfort Self Care Deficit Skin Integrity, Actual or Potential Urinary Tract Infection (UTI), Actual or Potential RISK FOR COMPLICATIONS - CARDIC monitoring heart rate/signs and symptoms for cardiac distress. - Weakness Regular therapeutic activity and exercise. Strengthening exercises to be performed. - Diabetic Complications Regular monitoring and management of blood glucose levels. pt will receive a specialized diet to help manage blood glucose levels. - Skin Breakdown Nursing will assess skin daily using assessment tool and will place on Skin Breakdown Precautions as Indicated per protocol. - UTI Monitor for frequency, burning, discomfort, or incontinence. Physician medical management as warrante d. - Falls Educated pt on fall prevention strategies to reduce/eliminate fall risk. Patient will be evaluated fo r Fall Precautions and will be placed on Fall Precautions as indicated per protocol. - DVT PTT and INR will be monitored to effectively mitigate risk for development of DVT or PE while here. M edications will be administered as per MD. Mobility training and regular exercise. - CVA pt has A-Fib and requires medical monitoring and medication management to reduce risk for CVA. INTERVENTIONS - CHF monitoring of patient symptoms and medication management by physician. Regular assessment of patient vitals. Daily weights will be obtained. - Diabetes Monitor blood glucose levels and administer medication as indicated by Physician. Diet will be custom ized to manage diabetic needs. - Depression Patient will continue with administered medications per MD. Provide regular exercise, which is a prop onent to fight depression. - A-Fib Vitals will be monitored regularly and medications administered as indicated by Physician. - Weakness Daily therapy services to enhance patient's functional strength and abilities. PATIENT COULD BE AT RISK FOR COMPLICATIONS FROM ADVERSE MEDICAL CONDITIONS DUE TO HIS/HER COMORBIDITI ES AND THE RIGORS OF THE INTENSIVE REHABILLITATION PROGRAM. METHODS OR INTERVENTIONS TO AVOID COMPLIC ATIONS INCLUDE: - Deep Vein Thrombosis (DVT) Prophylaxis therapy for prevention . Sequential Compression Device (SCD). TE D Hose. - Bleeding Assess lab values and manage abnormalities. Nursing to teach precautions for anti-coagulation therapy . Wound to be assessed every shift. - Infection Clinical staff to assess and manage the signs and symptoms of infection including fever, redness, war mth, etc. - Urinary Tract Infection - Falls Patient will be evaluated for Fall Precautions and will be placed on Fall Precautions as indicated pe r protocol. - Skin Breakdown Nursing will assess skin daily using assessment tool and will place on Skin Breakdown Precautions as indicated per protocol. - Pain Clinical staff may employ non-medication methods such as massage, distraction, decrease stimulus, etc . as needed. Clinical staff will assess patient's pain level every shift per protocol to assess and e nsure pain management effectiveness. Medications will be given and the pain level re-assessed. PRELIMINARY PLAN OF CARE: - Physical Therapy Patient needs Physical Therapy for a daily minimum of 1.5 hours at least 5 out of 7 days, to improve: Mobility, Strengthening, Transfers, Stretching, ROM, Endurance, Ability to manage stairs, Gait, and Balance. - Speech Therapy Patient needs Speech Therapy for a daily minimum of 0.5 hours at least 5 out of 7 days, to improve: S wallowing, Cognition, Language Skills, and Compensatory Strategies. - Rehabilitation Nursing Patient requires 24x7 Rehabilitation Nursing for: Pain Issues, Identifying and preventing risk factor s, Monitoring and reporting current medical conditions, Assisting with ambulation and transfer, Isidro ting with all ADL-s, Teaching patients about disease process and medications, Family teaching, Provid ing safe environment, Bowel and Bladder Issues, Skin Integrity, and Medication Management. Patient needs Quality Assurance Calibrator and/or Case Management for: Discharge Planning, Arranging Home Equipmen t or Services, and Family Interventions. - Dietary and Nutrition Services Patient needs Dietary and Nutrition Services for: Adequate Nutrition, Nutritional Supplements, and Nu tritional Education. - Occupational Therapy Patient needs Occupational Therapy for a daily minimum of 1.5 hours at least 5 out of 7 days, to impr ove Activities of Daily Living, including: Eating, Grooming, Bathing, Dressing, Toileting, Toilet Tra nsfers, Community Reintegration, Higher functional activities, Adaptive Equipment, Splinting, Househo ld Tasks, and Other activities as determined. QI SCORES: - Self-Care A. Eating 03-Partial/moderate assistance B. Oral hygiene 03-Partial/moderate assistance C. Toileting hygiene 03-Partial/moderate assistance E. Shower/bathe self 03-Partial/moderate assistance F. Upper body dressing 03-Partial/moderate assistance G. Lower body dressing 03-Partial/moderate assistance H. Putting on/taking off footwear 88-Not attempted due to medical condition or safety concerns - Mobility A. Roll left and right 04-Supervision or touching assistance B. Sit to lying 03-Partial/moderate assistance C. Lying to sitting on side of bed 03-Partial/moderate assistance D. Sit to stand 03-Partial/moderate assistance E. Chair/[id number]-[id number] transfer 03-Partial/moderate assistance F. Toilet transfer 03-Partial/moderate assistance G. Car transfer 88-Not attempted due to medical condition or safety concerns I. Walk 10 feet 03-Partial/moderate assistance J. Walk 50 feet with two turns 88-Not attempted due to medical condition or safety concerns K. Walk 150 feet 88-Not attempted due to medical condition or safety concerns L. Walking 10 feet on uneven surfaces 88-Not attempted due to medical condition or safety concerns M. 1 step (curb) 88-Not attempted due to medical condition or safety concerns N. 4 steps 88-Not attempted due to medical condition or safety concerns O. 12 steps 88-Not attempted due to medical condition or safety concerns P. Picking up object 88-Not attempted due to medical condition or safety concerns R. Wheel 50 feet with two turns S. Wheel 150 feet - Bladder and Bowel Bladder continence Bowel continence - Endurance Fair - Balance Fair - Safety Awareness Fair POTENTIAL FUNCTIONAL GOALS FOR PATIENT TO ACHIEVE BY DISCHARGE: - Safety Precaution Patient will remain free from falls or injury at time of discharge. - Bed Mobility Patient will perform bed mobility at 4-Elena level of assistance. - Transfers Patient will complete transfers from bed to chair at 4-Elena level of assistance. - Mobility Patient will ambulate 150 ft with 4-Elena level of assistance with RW. PATIENT REHAB POTENTIAL Caroline CABRERA is able and expected to receive 3 hours of individualized therapy daily on at least 5 of e very 7 days Caroline CABRERA's prognosis for significant practical improvement within a reasonable period of time appea rs Good Expected level of measurable improvement will be of a practical value to Caroline CABRERA's functional capa city or adaptations to impairments Has a viable Discharge Plan Medically appropriate; condition is sufficiently stable to participate in intensive rehab program DISCHARGE PLAN: - Estimated Length of Stay (days) 10. - Consensus on plan Discharge plan has been discussed with primary caregiver. Patient/Family is in agreement with the harish n. Primary caregiver is in agreement with the plan. - Patient/Family Goals Return home independently. - Planned Living Setting Upon Discharge Home, to live alone. Transitional Living. Primary caregiver: Pt self. CONCLUSION ON REHABILITATION NECESSITY: I have evaluated patient's pre-admission functional status and, comparing it to the patient's post-ad mission functional status now, I conclude that the pre-admission assessment was accurate. Patient's c ondition on admission supports the medical necessity of admission to IRF. It is safe to proceed with patient's therapy program. SIGNATURE PANEL: (CDT)
--- NOTE | 2022-02-23 19:23 | R.DS ---
DISCHARGE SUMMARY FACILITY [facility] MR# [id number] NAME ALICIA CABRERA ADDRESS [address] [address] [address] PHONE ( DATE OF 1935 AGE 86 SSN# [id number] GENDER Male MARITAL STATUS Unknown ENCOUNTER PHYSICIAN Dr. Dalton Helms M.D. REFERRING DOCTOR REFERRING FACILITY [facility] DISCHARGE DIAGNOSIS: - Cardiac 09 - Cardiac Disorders () CHF. DATE OF ADMISSION 02/10/2022 14:46 (CDT) MEDICATION ALLERGIES: No Known Drug Allergies (NKDA) ENVIRONMENTAL ALLERGIES: - Substance Allergies None Known - Other Allergies None Known DISCHARGE MEDICATIONS: Other- ContinueSee attached MAR (Medication Administration Record). NURSING: - Shower allowing shower PRECAUTIONS: - Fall Precaution SAFTY AND FALL ACTIVITIES OOB only with supervision THERAPIES: - Dietary and Nutrition Adequate Nutrition Nutritional Education Nutritional Supplements Evaluate and Treat - Occupational Therapy Cognitive Retraining Patient needs Occupational Therapy for a daily minimum of 1.5 hours at least 5 out of 7 days, to impr ove Activities of Daily Living, including: Eating, Grooming, Bathing, Dressing, Toileting, Toilet Tra nsfers, Community Reintegration, Higher functional activities, Adaptive Equipment, Splinting, Househo ld Tasks, and Other activities as determined Visual Perceptual Training Evaluate and Treat Patient/Family Education Safety Awareness Transfer Training ADL Training Household Tasks UE Strengthening Adaptive Equipment - Speech Therapy Cognitive Training Expressive Language Skills Memory Strategies Patient needs Speech Therapy for a daily minimum of 1.5 hours at least 5 out of 7 days, to improve: S wallowing, Cognition, Language Skills, and Compensatory Strategies Receptive Language Skills Speech Intelligibility Training Evaluate and Treat - Physical Therapy Patient needs Physical Therapy for a daily minimum of 1.5 hours at least 5 out of 7 days, to improve: Mobility, Strengthening, Transfers, Stretching, ROM, Endurance, Ability to manage stairs, Gait, and Balance Mobility Training Gait Training Safety Awareness Balance Training Transfer Training Evaluate and Treat Patient/Family Education LE Strengthening HISTORY OF PRESENT ILLNESS: Pt. is a 86 yo Right-handed male.On 02/04/2022 he was admitted to [facility] with diagnosis C HF.His impairment category is Cardiac 09 - Cardiac Disorders ().Pre-morbidly, Pt. was independent/ mod-I in Locomotion, Safety Awareness, Social Cognition, and Balance; and he had good Transfers Contr ol, Sphincter Control, Self-Care, Communication, and Endurance.Currently, he has deficits of Locomoti on, Safety Awareness, Social Cognition, Transfers Control, Balance, Sphincter Control, Self-Care, End urance, and Communication.Pt. is now referred to [facility] for acute in-patie nt rehabilitation in order to maximize patient's functional independence in activities of daily livin g, strength, ROM, and mobility.- Rehab Goal Patient has realistic goal of being discharged at assistance level 7-Ind to reside at Home with Pt s elf. DIET - LIQUID TEXTURE: On 02/09/2022 Pt was upgraded to Regular Diet - Liquid Texture. DIET - SOLID TEXTURE: On 02/09/2022 Pt was upgraded to Regular Diet - Solid Texture. DIET TYPE: On 02/09/2022 Pt was upgraded to Regular Diet Type. FALL PRECAUTION: On 02/09/2022 the following precautions were added for the patient: Fall Precaution - SAFTY AND FALL. On 02/10/2022 the following precautions were added for the patient: Fall Precaution - SAFTY AND FALL . On 02/12/2022 the following precautions were removed for the patient: Fall Precaution - SAFTY AND FA LL. On 02/13/2022 the following precautions were added for the patient: Fall Precaution - SAFTY AND FALL . The following precautions were removed for the patient: Fall Precaution - SAFTY AND FALL, and Fall Pr ecaution - SAFTY AND FALL. TUBE FEED: On 02/09/2022 Pt was changed to N/A Tube Feed. DISCHARGE PHYSICAL EXAM - Gen Alert and awake Lying in bed No apparent distress Oriented to: person, time, and place - Skin No skin breakdown. Normacephalic - Eyes No abnormalities - ENMT No abnormalities - Neck No abnormalities - CVS RRR - Chest No abnormalities - Abd Obese, soft, nontender - GI + bowel sounds Deferred - No abnormalities - Ext Mild bilateral lower extremity edema. - MSK 4+/5 weakness in both lower extremities. - Neuro No focal deficits FUNCTIONAL STATUS: - Self-Care A. Eating 7-Ind B. Grooming 6-Mariela C. Bathing 6-Mariela D. Dressing - Upper 5-sup E. Dressing - Lower 6-Mariela F. Toileting 6-Mariela - Sphincter Control G. Bladder control 6-Mariela H. Bowel control 6-Mariela - Transfers Control I. Bed/Chair/Wheelchair 6-Mariela J. Toilet 5-sup K. Tub/Shower 3-modA - Locomotion L. Walk/Wheelchair (B) 6-Mariela M. Stairs 5-sup - Communication N. Comprehension (B) 6-Mariela O. Expression (B) 6-Mariela - Social Cognition P. Social Interaction 6-Mariela Q. Problem Solving 6-Mariela R. Memory 6-Mariela - Endurance Good - Balance Good - Safety Awareness Good QI SCORES: - Self-Care A. Eating 03-Partial/moderate assistance B. Oral hygiene 03-Partial/moderate assistance C. Toileting hygiene 03-Partial/moderate assistance E. Shower/bathe self 03-Partial/moderate assistance F. Upper body dressing 03-Partial/moderate assistance G. Lower body dressing 03-Partial/moderate assistance H. Putting on/taking off footwear 88-Not attempted due to medical condition or safety concerns - Mobility A. Roll left and right 04-Supervision or touching assistance B. Sit to lying 03-Partial/moderate assistance C. Lying to sitting on side of bed 03-Partial/moderate assistance D. Sit to stand 03-Partial/moderate assistance E. Chair/cbv-zc-[id number] transfer 03-Partial/moderate assistance F. Toilet transfer 03-Partial/moderate assistance G. Car transfer 88-Not attempted due to medical condition or safety concerns I. Walk 10 feet 03-Partial/moderate assistance J. Walk 50 feet with two turns 88-Not attempted due to medical condition or safety concerns K. Walk 150 feet 88-Not attempted due to medical condition or safety concerns L. Walking 10 feet on uneven surfaces 88-Not attempted due to medical condition or safety concerns M. 1 step (curb) 88-Not attempted due to medical condition or safety concerns N. 4 steps 88-Not attempted due to medical condition or safety concerns O. 12 steps 88-Not attempted due to medical condition or safety concerns P. Picking up object 88-Not attempted due to medical condition or safety concerns R. Wheel 50 feet with two turns S. Wheel 150 feet - Bladder and Bowel Bladder continence Bowel continence - Endurance Fair - Balance Fair - Safety Awareness Fair DISCHARGE INSTRUCTIONS: - N/A Plavix 75 mg daily. DISCHARGE PLAN, FOLLOW UP CARE PROVISIONS: - Estimated Length of Stay (days) 10. - Consensus on plan Discharge plan has been discussed with primary caregiver. Patient/Family is in agreement with the harish n. Primary caregiver is in agreement with the plan. - Patient/Family Goals Return home independently. - Planned Living Setting Upon Discharge Home, to live alone. Transitional Living. Primary caregiver: Pt self. SIGNATURE PANEL: (CDT)
== END 2022-02-18 13:15 | disposition home or self-care (01) | DRG 948 ==
LOC: 5TH 19:53
PROVIDERS: ADMIT Psychiatry & Neurology Neurology with Special Qualifications in Child Neurology; ATTEND Psychiatry & Neurology Neurology with Special Qualifications in Child Neurology
DX: R53.81 Other malaise (principal); E11.9 Type 2 diabetes mellitus without complications; I50.9 Heart failure, unspecified; I48.91 Unspecified atrial fibrillation; F32.A Depression, unspecified; I95.9 Hypotension, unspecified; Z95.5 Presence of coronary angioplasty implant and graft; Z95.810 Presence of automatic (implantable) cardiac defibrillator; Z20.822 Contact with and (suspected) exposure to COVID-19
CPT/HCPCS: 36415; 71045; 71250; 74018; 78582; 80048; 81003; 81015; 82040; 82947; 83735; 84134; 85025; 87086; 87088; 97110; 97112; 97116; 97161; 97530; A9540; A9558; J2405; U0003